=== PATIENT | female | born 1940 | race Caucasian/White ===

== ENCOUNTER 2024-12-01 20:09 | Inpatient (IN) | payer BC, SELFPAY ==
[2024-12-01] VITALS (11 sets, daily range): BP systolic 129–173; BP diastolic 68–81; BMI 21.5; BMI 22.4
[2024-12-01 17:03] LABS: % Basophils 0.6 % (0-2); % Eosinophils 0.3 % (0-6); % Immature Granulocytes 0.3 % (0-0.5); % Lymphocytes 17.5 % (20.5-51.1); % Monocytes 6.4 % (1.7-9.3); % Neutrophils 74.9 % (42.2-75.2); Absolute Basophils 0.1 10^3/uL (0-0.2); Absolute Lymphocytes 1.8 10^3/uL (1.2-3.4); Absolute Monocytes 0.7 10^3/uL (0.1-0.6); Absolute Neutrophils 7.9 10^3/uL (1.4-6.5); Hematocrit 37.7 % (37.0-47.0); Hemoglobin 12.7 g/dL (12.0-16.0); Mean Corp Hgb Conc. 33.7 g/dL (33.0-37.0); Mean Corpuscular Hgb 30.2 pg (27.0-31.0); Mean Corpuscular Volume 89.5 fL (81.0-99.0); Mean Platelet Volume 10.9 fL (7.4-10.4); Nucleated Red Blood Cells % 0 %; Platelet Count 230 10^3/uL (130-400); Red Blood Cell Count 4.21 10^6/uL (4.20-5.40); Red Cell Dist. Width 11.8 % (11.5-14.5); White Blood Cell Count 10.5 10^3/uL (4.8-10.8)
[2024-12-01 17:33] LABS: ALT (SGPT) 19 U/L (0-35); AST (SGOT) 23 U/L (14-36); Albumin 4.7 g/dl (3.5-5.0); Alkaline Phosphatase 88 U/L (38-126); Blood Urea Nitrogen 29 mg/dl (7-17); Calcium 9.6 mg/dl (8.4-10.2); Carbon Dioxide 26 mmol/L (22-30); Chloride 94 mmol/L (98-107); Glucose 117 mg/dl (70-99); Potassium 3.4 mmol/L (3.5-5.1); Sodium 133 mmol/L (135-145); Total Bilirubin 0.8 mg/dl (0.2-1.3); Total Protein 7.1 g/dl (6.3-8.2); Troponin I 0.145 ng/ml; eGFR 45.19
[2024-12-01] MEDS: HEPARIN 3400 UNITS IV (18:20)
[2024-12-01] MEDS: LOW STRENGTH ASPIRIN 324 MG PO (18:20)
[2024-12-01] MEDS: NITROGLYCERIN PREMIX 250 IV (18:20)
--- NOTE | 2024-12-01 18:22 | ED.GENMED ---
History of Present Illness
General
Chief Complaint: Chest Pain
Time Seen by Provider: 12/01/24 17:45
History of Present Illness
History of Present Illness:
84-year-old female with history of high blood pressure presenting to the emergency department for substernal chest pain. Patient reports symptoms on and off for the past 3 weeks. She went to see her primary care doctor yesterday who advised that
she go across the street to get an EKG. She never got the EKG. At work today, had additional episodes of chest pressure, notes 3 episodes across her chest. This prompted her to come to the hospital. Reports that she is presently still having some
mild pressure across her chest. Denies any known cardiac history. Does note some family history of cardiac disease. Denies difficulty breathing. Denies fever or cough. She did not take any medications prior to arrival. Denies additional acute
medical complaints
Phy Exam
Physical Exam
Physical Exam:
General: Well-appearing, no clinical signs of dehydration, nontoxic and in no acute distress
HEENT: protecting airway
Neck: appears supple
CV: Normal heart rate, regular rhythm
Resp: No accessory muscle use, no increased work of breathing, lungs clear to auscultation bilaterally
Abd: No distention
Extremities: No deformities, no swelling
Neuro: alert, no focal neurologic deficit
: deferred
Rectal: deferred
Psych: Normal affect
Skin: Intact
Scores
Heart Score for Chest Pain Patients
STEMI patient?: No
History: Moderately Suspicious
ECG: Significant ST-Depression
Age: >/= 65 years
Risk Factors: 1 or 2 Risk Factors
Troponin: >/= 3 x Normal Limit
Heart Score for Chest Pain Patients: 8
Heart Score Risk: 72.7 % MACE over next 6 weeks
Course
Orders/Labs/Results
Orders:
Orders
12/01/24 16:07
Electrocardiogram (*1) Urgent
Reason for Study: Chest Pain
EKG- Treatment ONCE
12/01/24 16:48
Complete Blood Count/With Diff Urgent
Comprehensive Metabolic Panel Urgent
Troponin I Urgent
12/01/24 18:05
Heparin 3,400 units IV NOW STA
12/01/24 18:[address] Non Medication Order As Directed
Physician Order: PTT 6 hours after initial start of Heparin infusion
Above order entered?: Yes
12/01/24 18:08
EKG- Treatment ONCE
Aspirin Chewable [Low Strength Aspirin] 324 mg PO NOW STA
12/01/24 18:15
Heparin 24370 Units/250 ml 25,000 units in 250 ml IV PER PROTOCOL
Weight to be used for heparin protocol in kilograms (kg):: 56.699
Protocol:: Cardiac Tx/Acute Coronary
PTT Goal Range to be used:: PTT 73 to 111 seconds
Order type:: Initial
INITIAL Infusion Dose (UNITS/KG/hr) & then follow protocol:: 12 units/kg/hr
Infusion Dose in UNITS/hr & then follow protocol (UNITS/hr):: 700
INFUSION RATE in mL/hr & then follow protocol (mL/hr):: 7
PTT less than or equal to 64 seconds:: Increase rate by 200 units/hr (+ 2 mL/hr)
PTT 64.1 to 72.9 seconds:: Increase rate by 100 units/hr (+ 1 mL/hr)
PTT 73 to 111 seconds:: Target Range. No change in rate.
PTT 111.1 to 130.9 seconds:: Decrease rate by 100 units/hr (- 1 mL/hr)
PTT 131 to 199.9 seconds:: HOLD for 1 hr. Then decrease rate by 200 units/hr (- 2 mL/hr)
PTT greater than or equal to 200 seconds:: HOLD for 2 hrs & Notify Provider. Then decrease by 200 units/hr (-
2 mL/hr)
Lab follow-up:: Each change, PTT q6h until 2 consecutive are therapeutic. Then PTT
daily.
Nitroglycerin 100 mg/250 ml [Nitroglycerin Premix] 100 mg in 250 ml IV PER PROTOCOL
Initial dose in mcg/min, then titrate:: 5
Titrate to keep:: Chest Pain Free
Titrate by mcg/min:: 5 mcg/min, may increase by 10 mcg/min if dose > 20 mcg/min
Frequency of titrations (minutes):: every 3-5 minutes
Maximum dose in mcg/min:: 200
Begin to taper infusion when:: Remained at goal for 2hrs
Taper by mcg/min:: 5 mcg/min
Frequency of taper (minutes) if patient maintains goal:: 30
Taper to off?: Yes
If infusion off & no longer maintaining goal:: Contact Provider
12/01/24 18:34
PTT Urgent
Comment: Obtain baseline before beginning heparin infusion if not already collected
12/01/24 19:45
Electrocardiogram (*1) Urgent
Reason for Study: Chest Pain
12/01/24 19:49
Admit/Transfer Patient As Directed
Co-Sign Provider:
Level of Care: Inpatient admission
Assign to:: IVU
Physician / Group: Horacio
Diagnosis: NSTEMI
Reason for Hospitalization: NSTEMI
Expected length of stay greater than two midnights?: Yes
ELOS- Estimated Length of Stay in days: 3
I certify the patient meets the requirements for IP care: Yes
Code Status As Directed
Resuscitation Status: Full Code
12/01/24 20:08
Troponin I Urgent
12/02/24 00:30
PTT Urgent
Abnormal Lab Results
12/01/24 12/01/24
16:48 18:34
MPV 10.9 H fL
(7.4-10.4)
Absolute Neuts (auto) 7.9 H 10^3/uL
(1.4-6.5)
Absolute Monos (auto) 0.7 H 10^3/uL
(0.1-0.6)
Lymphocytes % 17.5 L %
(20.5-51.1)
APTT > 200 H* Sec
(23.4-35.0)
Sodium 133 L mmol/L
(135-145)
Potassium 3.4 L mmol/L
(3.5-5.1)
Chloride 94 L mmol/L
(98-107)
BUN 29 H mg/dl
(7-17)
Creatinine 1.2 H mg/dL
(0.6-1.0)
Glucose 117 H mg/dl
(70-99)
Troponin I 0.145 H* ng/ml
12/01/24 16:48
12/01/24 16:48
Vital Signs
Initial and Last Documented VS:
Initial Vital Signs
Temp Pulse Resp BP Pulse Ox
98.8 F 86 16 130/74 98
12/01/24 16:39 12/01/24 16:39 12/01/24 16:39 12/01/24 16:39 12/01/24 16:39
Last Documented Vital Signs
Temp Pulse Resp BP Pulse Ox
98.5 F 80 13 157/73 100
12/01/24 17:58 12/01/24 19:00 12/01/24 19:00 12/01/24 19:00 12/01/24 19:00
MDM/Problems Addressed
MDM/Problems Addressed:
84-year-old female with history of hypertension presenting to the emergency department for chest pain. Vital signs on arrival are normal.
On exam patient is resting comfortably. Unremarkable cardiac and pulmonary exam. However, patient had EKG on arrival, abnormal with diffuse ST depressions. Patient also had laboratory analysis prior to my assessment, with troponin elevation. At
this time concern for NSTEMI. EKG repeated immediately upon patient arrival into examination room, without significant dynamic changes. Will administer aspirin and discussed with cardiology.
18:10 - In discussion with cardiology, recommending heparin and nitro drip. Plan for admission for continued cardiac consultation and likely cardiac catheterization
*EKG
Interpreted by ED Provider?: Yes
EKG Intrepretation Date: 12/01/24
Interpretation: abnormal
Comparison EKG: no comparison EKG present
Heart Rate: 69
Rate: normal
Rhythm: sinus
[place]: normal axis
Interval: normal interval
QRS Pattern: left vent hypertrophy
Ischemia: ST depression (diffuse)
*Critical Care Note
Total Time (30-74mins, 75-104mins- exclusive of procedures): 42
comment:
The high probability of a clinically significant, sudden or life threatening deterioration of the cardiac system(s) required my full and direct attention, intervention and personal management. The aggregate critical care time was 42 minutes. This
time is in addition to time spent performing reported procedures but includes the following:
[x] Data Review and interpretation
[x] Patient assessment and monitoring of vital signs
[x] Documentation
[x] Medication orders and management
ED Attending Note
-
Portions of this chart may have been created with voice recognition software.� Occasional wrong word or��sound alike� substitutions may have occurred due to the inherent limitations of voice recognition software.
Discharge Plan
Departure
Patient Disposition: Admit
Date of Disposition: 12/01/24
Time of Disposition: 19:12
Presentation/result/management discussed w/ accepting MD/DO: Hospitalist
Patient with high blood pressure during this ER visit?: No
Condition: Fair
Discharge Problem:
Non-ST elevation [place] (NSTEMI), Chest pain
Interventions
Interventions:
*Risk Screen - Suicide Last Done: 12/01/24 16:39
*General Assessment Last Done: 12/01/24 17:58
*Neglect/Abuse Screening Last Done: 12/01/24 16:39
*ED- Fall Risk Assessment Last Done: 12/01/24 17:58
*ED COVID-19 Vaccine History Last Done: 12/01/24 17:58
ED- Cardiac Assessment Last Done: 12/01/24 17:58
[2024-12-01] MEDS: HEPARIN 25000 UNITS/250 ML IV (18:38)
[2024-12-01 19:34] LABS: APTT > 200 Sec (23.4-35.0)
--- NOTE | 2024-12-01 19:52 | HPS.HSE ---
Family Physician
-
Family Physician: Ean Gibbons
Chief Complaint
-
Chest pain
History of Present Illness
Patient is an 84y F with PMH significant for hypertension who presents to ED complaining of chest pain. Patient states that she first noted chest discomfort in October. Pain was intermittent and brief initially. Over the past week or so, she
notes that the pain has been more frequent and more severe. Pain not associated with exercise / strenuous activity - but tends to occur more often when at work / under stress. Patient describes pain across the chest with radiation into both arms.
No back pain. No dyspnea or diaphoresis. She reports frequent belching and states that her symptoms had improved previously with TUMS or Pepcid.
Patient also states that she started taking daily ASA - but only in the past week or so since her pain began.
Patient was seen by her PCP on Thursday of this week and reported her complaints. She was advised to go to [facility] to have an EKG done, but she declined to do so at the time.
Today she had three episodes of chest pain while at work and presented to the ED for evaluation.
At the time of my exam, patient is pain-free.
Medical History
Past Medical History
Past Medical History: Reports Other
Additional Past Medical History:
Hypertension
Dyslipidemia
Past Surgical History: Reports Other
Additional Past Surgical History:
D&C
Social History
Tobacco: Former Smoker (Quit smoking about 20 years ago. Approx 30 pack years total use.)
Alcohol: Occasional
Drug: None
Family History
Family History: Hypertension
Allergies / Home Medications
Allergies reflects when Allergies were last updated in [employer].
Home Medications with original date entered in [employer]
Allergy/Medication List:
Allergies
Allergy/AdvReac Type Severity Reaction Status Date / Time
pepper (genus Capsicum) Allergy Unknown Verified 12/01/24 16:43
tetanus and diphtheria Allergy Unknown Verified 12/01/24 16:43
toxoids
Home Medications
aspirin 325 mg tablet 650 mg PO DAILYPRN PRN preventative measure 12/01/24
enalapril maleate 20 mg tablet 20 mg PO DAILY 12/01/24
hydrochlorothiazide 25 mg tablet 25 mg PO DAILY 12/01/24
omega 3-tty-xal-fish oil 1,000 mg (120 mg-180 mg) capsule (Fish Oil) 1 cap PO HS 12/01/24
simvastatin 10 mg tablet 10 mg PO HS 12/01/24
Review of Systems
-
History Source: Patient
A 12 point ROS was completed and negative except as noted: Yes
Constitutional: Denies Fever, Fatigue or Chills
EENT: Denies Sore Throat
Respiratory: Denies Cough or Trouble Breathing
Cardiac: Reports Chest Pain; Denies Diaphoresis, Palpitations or Syncope
Abdomen/GI: Reports Other (Belching.); Denies Abdominal Pain, Nausea, Vomiting or Diarrhea
: Denies Dysuria or Frequency
Musculoskeletal: Denies Joint Pain or Edema
Neurological: Denies Dizzy or Headache
Psych: Denies Depression or Anxiety
Physical Exam
Vital Signs
Vital Signs
Temp Pulse Resp BP Pulse Ox
98.5 F 80 13 157/73 100
12/01/24 17:58 12/01/24 19:00 12/01/24 19:00 12/01/24 19:00 12/01/24 19:00
Physical Exam
General: Other (84y F in no acute distress.)
HEENT: Moist mucous membranes and PERRLA
Respiratory: Clear; No Wheezes, Rales or Rhonchi
Cardiac: S1/S2 and Regular Rhythm; No Murmur
GI: Soft, Non Tender, Non Distended and Normal Bowel Sounds
Musculoskeletal: No Clubbing, No Cyanosis and No Edema
Neuro: AO x 3
Laboratory Results
-
12/01/24 16:48
12/01/24 16:48
Laboratory Results
APTT > 200 Sec (23.4-35.0) H* 12/01/24 18:34
Total Bilirubin 0.8 mg/dl (0.2-1.3) 12/01/24 16:48
AST 23 U/L (14-36) 12/01/24 16:48
ALT 19 U/L (0-35) 12/01/24 16:48
Alkaline Phosphatase 88 U/L (38-126) 12/01/24 16:48
Troponin I 0.145 ng/ml H* 12/01/24 16:48
Impression/Plan
-
A/P: Patient is an 84y F with PMH significant for hypertension and dyslipidemia who presents to ED complaining of chest pain.
NSTEMI
- Admit for further evaluation and treatment.
- Symptoms have been present for a few weeks - worse over the past week.
- EKG with ST elevation in AVR and diffuse ST depressions.
- Initial troponin elevated at 0.145 - trend to peak.
- Patient is pain-free at present.
- Continue IV heparin and IV NTG - adjust as needed.
- ASA daily. Change statin to atorvastatin.
- Cardiology evaluation for additional recommendations and likely ischemic evaluation.
- Follow for any new / worsening symptoms.
Hypertension
- BP not markedly elevated here in the ED.
- Hold enalapril for now while on IV NTG.
- Adjust med regimen prior to discharge for BP control / reduction in CV risk.
Renal Insufficiency
- SCr = 1.2 with no prior values for comparison.
- Holding ALEE as noted above.
- Follow for changes in the next 48 hours to determine MARLENY v CKD.
DVT Prophylaxis: On IV Heparin
Code Status: Full
[2024-12-01 21:15] LABS: Troponin I 0.211 ng/ml
[2024-12-01] MEDS: LR 1000 IV (23:07)
[2024-12-01 23:55] LABS: APTT 106.5 Sec (23.4-35.0)
[2024-12-02] VITALS (14 sets, daily range): BP systolic 116–164; BP diastolic 62–125; BMI 22.2
[2024-12-02 00:04] LABS: Troponin I 0.343 ng/ml
--- NOTE | 2024-12-02 03:25 | PTCARENOTE ---
Received pt from ER into 2255 last night around 2200. Pt AAOx3 SR on the monitor VSS Heparin gtt infusing @ 700 units/HR Nitro gtt @ 5 mcg/min denies cp. Pt is NPO for possible cath. Call rick within reach.
[2024-12-02 05:56] LABS: Hematocrit 34.5 % (37.0-47.0); Mean Corp Hgb Conc. 34.8 g/dL (33.0-37.0); Mean Corpuscular Hgb 30.3 pg (27.0-31.0); Mean Corpuscular Volume 87.1 fL (81.0-99.0); Platelet Count 220 10^3/uL (130-400); Red Blood Cell Count 3.96 10^6/uL (4.20-5.40); Red Cell Dist. Width 11.6 % (11.5-14.5); White Blood Cell Count 9.4 10^3/uL (4.8-10.8)
[2024-12-02 06:04] LABS: APTT 92.8 Sec (23.4-35.0)
[2024-12-02 06:23] LABS: Blood Urea Nitrogen 32 mg/dl (7-17); Calcium 9.4 mg/dl (8.4-10.2); Carbon Dioxide 26 mmol/L (22-30); Chloride 101 mmol/L (98-107); Estimated Creatinine Clearance 33 ml/min; Glucose 95 mg/dl (70-99); HDL Cholesterol 58 mg/dl; LDL Cholesterol, Calculated 113 mg/dl; Potassium 3.2 mmol/L (3.5-5.1); Sodium 136 mmol/L (135-145); Total Cholesterol 188 mg/dl (50-199); Triglyceride 88 mg/dl (10-149); Very Low Density Lipoprotein 17 mg/dl (0-30); eGFR 50.17
[2024-12-02 06:44] LABS: Troponin I 0.536 ng/ml
--- NOTE | 2024-12-02 06:55 | W.PN.HOSP.TC ---
Today's Communication/Plan
-
ischemic cardiac evaluation
IV heparin, IV NTG
Replace K
Echo
Assessment / Plan
Assessment / Plan
Physical Exam
General: No Apparent Distress and Comfortable
HEENT: Normocephalic, Anicteric and Moist Mucous Membranes
Respiratory: Clear; Negative Wheezes,
Cardiac: S1/S2
GI: Soft, Non Tender and Non Distended
Musculoskeletal: No Clubbing, No Cyanosis and No Edema
Skin: Warm
Neuro: AO x 3, she follows commands.
Psych: Calm
Patient is an 84y F with PMH significant for hypertension and dyslipidemia who presents to ED complaining of chest pain.
# NSTEMI
-troponin at 0.536 this morning from 0.145
no chest pain over night
Positive EKG changes
Continue IV heparin and IV NTG - adjust as needed.
- ASA daily. Change statin to atorvastatin. LDL 113
- order echo
- Cardiology evaluation for additional recommendations and likely ischemic evaluation.
- Follow for any new / worsening symptoms.
# Essential Hypertension
- Hold enalapril for now while on IV NTG.
- Adjust med regimen prior to discharge for BP control / reduction in CV risk.
#MARLENY
- SCr = 1.2 , down to 1.1
- Holding ALEE as noted above.
# Hyponatremia, mild
# Hypokalemia
replace
DVT Prophylaxis: On IV Heparin
Code Status: Full
Anticipated Discharge: 24 - 48 hours
Subjective/Interval History
-
Date of Service: December 02, 2024
Denies chest pain or sob
Objective Data
-
Labs:
Laboratory Results
12/01/24 12/01/24 12/01/24
18:34 21:38 23:02
WBC
Hgb
Hct
Plt Count
APTT > 200 H* Cancelled 106.5 H
Sodium
Potassium
Chloride
Carbon Dioxide
BUN
Creatinine
Glucose
Calcium
12/02/24 12/02/24
00:30 05:37
WBC 9.4
Hgb 12.0
Hct 34.5 L
Plt Count 220
APTT Cancelled 92.8 H
Sodium 136
Potassium 3.2 L
Chloride 101
Carbon Dioxide 26
BUN 32 H
Creatinine 1.1 H
Glucose 95
Calcium 9.4
Vital Signs:
Vital Signs
Temp Pulse Resp BP Pulse Ox
99.2 F 77 16 136/66 96
12/02/24 05:27 12/02/24 05:27 12/02/24 05:27 12/02/24 05:24 12/02/24 05:27
I&O
11/30/24 12/01/24 12/02/24
06:59 06:59 06:59
Intake Total 776 / 776
Balance 776 / 776
--- NOTE | 2024-12-02 08:00 | PTCARENOTE ---
Assumed care of pt from prev nsg shift; Pt AAOx3 w/no c/o CP or SOB. Pt's VSS w/HR in the 70's & BP 137/67 this AM. Pt is SR on telemetry monitoring. Pt w/Hep IV, Nitro IV, & IVF infusing through patent IV lines as ordered. Pt OOB w/contact guard
assist due to IV pole; gait steady. CAD/ACS book given to pt. Pt w/no addtl needs at this time. Call rick within reach & plan of care ongoing.
--- NOTE | 2024-12-02 08:07 | CON.CAR ---
Consultation
Consultation Request
Date/Time Consultation Requested: 12/02/24
Date/Time Consultation Performed: 12/02/24
Requesting Provider: Dr Luke
Performing Provider: Dr Rodriguez
Reason for Consultation: chest pain
Medical History
-
Chief Complaint: Chest pain
History of Present Illness:
84-year-old female with a past medical history of hypertension and hyperlipidemia presents for evaluation of chest pain. Patient has had intermittent episodes of chest pain across the anterior aspect of the upper chest since the end of October.
She had first thought this was gas as it seems to be associated with food. However over the last several days, she has noticed that if she has been rushing and yesterday, she was stopped and her checked by the severity of the pain. This time the
pain went across her chest and radiated into her armpit and down her sides. She is still independent living alone working full-time, but is not active outside of work.
Upon arrival, she was started on a nitroglycerin drip which immediately relieved the pain and this pain has not recurred.
Past Medical History
Past Medical History: HTN and Hypercholesterolemia
Past Surgical History: None
Social History
Tobacco: Former Smoker (Quit 20 years ago)
Alcohol: Occasional (2-3 times a week, 2-3 glasses of wine)
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
Family History
Family History: Reviewed & Not Pertinent
Allergies / Home Medications
Allergy/AdvReac Type Severity Reaction Status Date / Time
pepper (genus Capsicum) Allergy Unknown Verified 12/01/24 16:43
tetanus and diphtheria Allergy Unknown Verified 12/01/24 16:43
toxoids
�Medication �Instructions �Recorded �Confirmed �Type
aspirin 325 mg tablet 650 mg PO DAILYPRN PRN 12/01/24 12/01/24 History
preventative measure
enalapril maleate 20 mg tablet 20 mg PO DAILY 12/01/24 12/01/24 History
hydrochlorothiazide 25 mg tablet 25 mg PO DAILY 12/01/24 12/01/24 History
omega 6-jlb-qir-fish oil 1,000 mg 1 cap PO HS 12/01/24 12/01/24 History
(120 mg-180 mg) capsule (Fish Oil)
simvastatin 10 mg tablet 10 mg PO HS 12/01/24 12/01/24 History
Review of Systems
-
All other systems: Negative unless noted
Physical Exam
Vital Signs
Temp Pulse Resp BP Pulse Ox
98.4 F 71 16 137/67 98
12/02/24 07:50 12/02/24 07:45 12/02/24 07:50 12/02/24 07:40 12/02/24 07:50
Lab Results
12/02/24 05:37
12/02/24 05:37
Troponin I 0.536 ng/ml H* D 12/02/24 05:37
Physical Exam
General: Well Developed, Well Nourished, No Apparent Distress and Comfortable
HEENT: Normocephalic, Anicteric and Moist Mucous Membranes
Respiratory: Clear; Negative Wheezes, Crackles, Rhonchi or Non Labored Respirations
Cardiac: S1/S2 and Regular Rhythm; Negative Murmur, Rub or Peripheral Edema
GI: Soft, Non Tender and Non Distended
Musculoskeletal: No Clubbing, No Cyanosis and No Edema
Skin: Warm
Neuro: AO x 3
Psych: Calm
Impression / Plan
-
84-year-old female with history of hypertension and hyperlipidemia presents with intermittent chest pains that become progressive and more severe prompting her to seek care in the emergency department.
NSTEMI:
-Continue heparin gtt and nitro gtt with intensive monitoring, aspirin, high-dose statin
-hold off on P2y12 inhibitor given HARVINDER in AVR on initial ECG
-Will add beta-hemant
-Eventually resume ALEE inhibitor.
-Check echo
-Continue to trend troponin to peak
-Keep n.p.o., plan for catheterization today
HTN: will transition medications to OMT
HLD: LDL too high, transitioned to high dose statin, will continue
d/w Dr Desir and Dr Prado
Overall, situation is still high risk, plan to proceed to cath for further evaluation and treatment
Data Reviewed
-
EKG: Tracing Personally Visualized and interpreted (EKG tracing 12/01/2024 shows normal sinus rhythm with diffuse ST depression, HARVINDER in AVR left ventricular hypertrophy. Repeat EKG 12/02/2024 normal sinus rhythm, improved ST depressions compared to the
prior)
Labs: Labs Reviewed by me (Troponin 0.145 trended up to 0.536 and still rising LDL 113)
[2024-12-02] MEDS: LOW STRENGTH ASPIRIN 81 MG PO (09:39)
[2024-12-02] MEDS: LOPRESSOR 12.5 MG PO ×2 (09:39→21:12)
[2024-12-02] MEDS: PROTONIX 40 MG PO (09:39)
[2024-12-02] MEDS: KCL 270 MEQ IV (09:46)
[2024-12-02 10:09] LABS: Glycohemoglobin (HgbA1c) 5.7 % (4.0-5.6)
[2024-12-02 10:24] LABS: Troponin I 0.431 ng/ml
--- NOTE | 2024-12-02 10:30 | PTCARENOTE ---
Pt not tolerating IV K+ infusion. Running through patent IV line w/compatible IVF. Pt reporting 10/ pain at the IV site & 'going up the arm'. Pt is refusing the IV K+ now & stated she'll 'eat 10 bananas instead'. Advised Dr Prado & Yard Assistant.
PO K+ to be ordered post cardiac cath when pt no longer NPO per Dr Prado. IV K+ infusion stopped.
--- NOTE | 2024-12-02 10:40 | PTCARENOTE ---
Pt w/no c/o CP for >6 hrs. Pt's VSS. IV Nitro drip titrated to off as ordered for no CP.
--- NOTE | 2024-12-02 11:06 | CM ---
Addendum entered by JUS Bryan 12/02/24 15:02:
Met w/ patient at bedside. Patient has had CATH and is now anticipating CT Surgery, date unknown.
Emotional support provided.
Agreed to return at a later time to complete pre-op teaching.
Original Note:
CM following for DC planning needs.
Met w/ patient at bedside to complete initial assessment.
Pt. resides alone in a private, split level home. She is functionally indep. w/ ADLs, mobility without the use of any assisted device.
Pt. works full-time thru the [employer].
Pt. has RX plan and uses [facility] in [place] for prescription needs; pt. does NOT have Medicare ins.
Anticipated DC plan is for home, no needs.
Will remain avail. and cont. to follow.
--- NOTE | 2024-12-02 11:15 | PTCARENOTE ---
Report given to Rakel in the agriculture laboratory technician. Pt's IVF & IV Heparin drips stopped. 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
--- NOTE | 2024-12-02 12:07 | CONSULT.CT ---
Consultation
-
Date/Time Consultation Requested: 12/02/24 1200
Date/Time Consultation Performed: 12/02/24 1205
Requesting Provider: Marla DARDEN
Performing Provider: Seema DARDEN for Esvin HARE
Reason for Consultation: CABG eval
Patient History
Physicians
Family Physician: Ean Gibbons
Outpatient Consulting Project Director: Dr Rodriguez
Inpatient Consulting Project Director: Dr Rodriguez
History of Present Illness
84-year-old female with past medical history significant for hypertension and hyperlipidemia presents to [facility] on 12/01/2024 with complaints of worsening chest pain. She states that she has been having several episodes of intermittent
chest pain however yesterday it has grown in severity it went across her chest and radiated to her armpit and down her arm. Upon arrival to the emergency room patient was started on a nitroglycerin drip which helped resolve her pain. She was also
found to have an elevated troponin which peaked at 0.536 and was started on a heparin drip. Echocardiogram today showed an LV EF of 55-60% with mid anteroseptal/inferior septal hypokinesis and no significant valvular disease. She was also taken
for a left heart cath which was just significant for ostial left main into LAD and left circumflex disease. CT surgery was consulted for surgical evaluation.
Past Medical History
Past Medical History: HTN and Hypercholesterolemia
Past Surgical History
Past Surgical History: None
Family History
Mother: N/A
Father: N/A
Family Medical History: CAD
Social History
Alcohol: Occasional (2-3 glasses of wine/week)
Drug: None
Tobacco: Former Smoker
Personal: Single
Living: Alone
Employment: Employed
Allergies
Allergy/AdvReac Type Severity Reaction Status Date / Time
pepper (genus Capsicum) Allergy Unknown Verified 12/01/24 16:43
tetanus and diphtheria Allergy Unknown Verified 12/01/24 16:43
toxoids
Home Medications
�Medication �Instructions �Recorded �Confirmed �Type
aspirin 325 mg tablet 650 mg PO DAILYPRN PRN 12/01/24 12/01/24 History
preventative measure
enalapril maleate 20 mg tablet 20 mg PO DAILY 12/01/24 12/01/24 History
hydrochlorothiazide 25 mg tablet 25 mg PO DAILY 12/01/24 12/01/24 History
omega 8-pcb-wxp-fish oil 1,000 mg 1 cap PO HS 12/01/24 12/01/24 History
(120 mg-180 mg) capsule (Fish Oil)
simvastatin 10 mg tablet 10 mg PO HS 12/01/24 12/01/24 History
Review of Systems
-
History Source: Patient
General: Reports No Symptoms
HEENT: Reports No Symptoms
Respiratory: Reports HILLS
Cardiac: Reports Chest Pain
Abdomen/GI: Reports No Symptoms
: Reports No Symptoms
Musculoskeletal: Reports No Symptoms
Skin: Reports No Symptoms
Neurological: Reports No Symptoms
Vascular: Reports No Symptoms
Physical Exam
Vital Signs
Temp 98 F 12/02/24 11:03
Temp route: Oral 12/02/24 11:03
Pulse 75 12/02/24 11:15
Rhythm: Normal sinus rhythm 12/02/24 08:05
Resp Rate 20 12/02/24 11:03
Blood pressure 162/80 12/02/24 11:02
Blood pressure extremity used: Right upper arm 12/02/24 11:03
Position: Lying 12/02/24 11:03
MAP (cuff-Betzy Monitor) 98 12/02/24 11:02
MAP 87 12/01/24 17:58
SaO2 99 12/02/24 11:03
Oxygen Mode of Delivery Room air 12/02/24 11:03
Can the patient verbally communicate their pain? Yes 12/02/24 08:05
Actual Weight 56.8 kg 12/02/24 05:26
Body Mass Index (BMI) 22.2 12/02/24 05:26
Labs
12/02/24 05:37
12/02/24 05:37
APTT 92.8 Sec (23.4-35.0) H 12/02/24 05:37
Hemoglobin A1c Cancelled 12/01/24 21:51
Troponin I 0.431 ng/ml H* 12/02/24 09:48
Exam
General: Well Developed, Well Nourished and No Apparent Distress
HEENT: Moist Mucous Membranes
Respiratory: Clear
Cardiac: S1/S2 and Regular Rhythm
GI: Soft and Non Tender
Rectal: Deferred by Provider
Skin: Warm and Dry
Neuro: AO x 3
Extremities: Pulses (+1)
Lymph: No Lymphadenopathy
Psych: Other (anxious)
Assessment / Plan
-
84-year-old female with past medical history of hypertension and hyperlipidemia presented to [facility] on 12/01 with complaints of chest pain and ruled in for an NSTEMI. Left heart cath revealed left main disease and CT surgery was
consulted for surgical evaluation.
#CAD
-Patient's case will be discussed with attending physician. Further details regarding surgical timing intervention will be determined after attending physicians full evaluation
-Routine preoperative cardiothoracic surgery orders will be initiated.
-STS risk stratification score will be calculated after preoperative testing is complete
-Continue nitroglycerin and heparin gtt per cardiology
[2024-12-02] MEDS: LR IV (12:44)
--- NOTE | 2024-12-02 14:10 | ITS.CL.PN ---
Digital Manager - Procedure Note
Procedure
Procedure Note:
CARDIAC CATHETERIZATION REPORT
Date of Procedure: 12/02/2024
Referring: Dr. Mae Rodriguez MD
Indication: NSTEMI
PROCEDURE(S)
1. left heart catheterization
2. coronary angiography
ACCESS: 6F right radial artery (closure: radial band)
CATHETERS
1. 6F JR4
2. 6F JL3.5
MODERATE SEDATION: 25 minutes of moderate sedation was utilized. An independent medical resident was present to assist with and help manage the patient's level of consciousness and physiologic status.
ULTRASOUND GUIDED VASCULAR ACCESS (right radial artery): Ultrasound was utilized for vascular access. The vessel was visualized under ultrasound and noted to be patent. An image of the vessel was stored permanently in the patient's medical record.
Under direct ultrasound guidance, vascular access was obtained using a modified Seldinger technique and a 6 [place] sheath was placed.
HEMODYNAMIC DATA
LV 144/12 (EDP 18) mmHg
AO 140/67 (mean 96) mmHg
CORONARY ANGIOGRAPHY
Dominance: Right
LM: Short vessel with a calcific 95-99% stenosis ostially.
LAD: Large vessel giving rise to a small D1, moderate caliber D2, and small D3. There is a calcific 80% stenosis in the mid-vessel and otherwise mild non-obstructive disease.
LCx: Moderate caliber vessel giving rise to a small OM1, moderate caliber OM2, and small OM3. There is a 50% focal stenosis in the proximal vessel and otherwise non-obstructive disease.
RCA: Large vessel giving rise to a large caliber RPDA, small RPL1, and large RPL2. There is a tortuous segment in the mid-RCA that contains a focal 90% stenosis. There is also moderate Pereira 1,1,1 bifurcation disease at the distal RCA/RPDA/RPAV
bifurcation. There is otherwise mild non-obstructive disease.
RADIATION: dose 352 mGy; DAP 26.1 Gy*cm2; fluoroscopy time 5.1 min
CONCLUSIONS
1. Severe calcific multivessel coronary artery disease as described including high-grade ostial left main stenosis.
2. Mildly elevated LV filling pressure and no aortic stenosis
RECOMMENDATIONS
1. expectant management after cardiac catheterization via right radial approach
2. Continue aspirin and heparin, avoid P2 Y12 inhibitors
3. CT surgical consult for CABG with RADER to LAD and additional grafts to the RPDA, RPL2, and OM2.
Copy to: Dr. Ean Gibbons MD (PCP)
Signed: Dylan Hansen MD, PhD
[2024-12-02] MEDS: FLUSH (NSS) 1 FLUSH IV (17:31)
[2024-12-02] MEDS: LIPITOR 40 MG PO (17:32)
--- NOTE | 2024-12-02 19:57 | PTCARENOTE ---
Assumed care of the pt @ 1900. Pt is AAOx3 with family @ bedside. SR on the monitor VSS denies pain. Heparin is infusing @ 700 units/ HR. Call rick within reach.
[2024-12-02 21:48] LABS: APTT 63.4 Sec (23.4-35.0)
[2024-12-03] VITALS (29 sets, daily range): BP systolic 76–174; BP diastolic 37–94; BMI 22.3
[2024-12-03] MEDS: NITROSTAT (SUBLINGUAL) 0.4 MG SL (03:45)
--- NOTE | 2024-12-03 03:54 | PTCARENOTE ---
Pt c/o midsternal chest pain 04/06 the radiates to both arms. T Luis A notified and up at bedside to eval. EKG done. morning labs sent including troponin. Nitro gtt restarted and titrating for chest pain. Nitro sl given stat as well. Pt was placed
on 2 LPM NC.
[2024-12-03] MEDS: LOPRESSOR 12.5 MG PO ×2 (04:05→19:32)
--- NOTE | 2024-12-03 04:06 | W.PN.UPDATE ---
Update Note
Progress Note Update
-came in urgently @ 3:35am as pt c/o 7/10 CP, looked uncomfortable, restless in bed. ECG reviewed. BP was initially 116/75, hr 65. Pt is on iv Heparin; however, iv Nitro has been off. 2L O2 started, gave 1 sl Nitro, restarted Nitro drip and CP
resolved. Repeat SBPs 150s-170s- uptitrated iv Nitro and gave po BB early. Pt is now comfortable and pain free
-am labs sent
-continue iv Nitro (please do not wean off. Pt has mv-CAD with 95-99% LM stenosis). Continue iv Heparin
-preop eval for CABG is ongoing
[2024-12-03 04:13] LABS: Hematocrit 36.6 % (37.0-47.0); Hemoglobin 12.5 g/dL (12.0-16.0); Mean Corp Hgb Conc. 34.2 g/dL (33.0-37.0); Mean Corpuscular Hgb 30.5 pg (27.0-31.0); Mean Corpuscular Volume 89.3 fL (81.0-99.0); Mean Platelet Volume 11.3 fL (7.4-10.4); Platelet Count 209 10^3/uL (130-400); Red Cell Dist. Width 11.8 % (11.5-14.5); White Blood Cell Count 11.2 10^3/uL (4.8-10.8)
[2024-12-03 04:25] LABS: INR 1.03; PT 13.8 Sec (11.4-14.6)
[2024-12-03 06:11] LABS: ALT (SGPT) 24 U/L (0-35); AST (SGOT) 34 U/L (14-36); Albumin 4.2 g/dl (3.5-5.0); Alkaline Phosphatase 100 U/L (38-126); Blood Urea Nitrogen 27 mg/dl (7-17); Calcium 9.4 mg/dl (8.4-10.2); Carbon Dioxide 22 mmol/L (22-30); Chloride 103 mmol/L (98-107); Direct Bilirubin 0.2 mg/dl (0.0-0.4); Estimated Creatinine Clearance 33 ml/min; Glucose 110 mg/dl (70-99); Potassium 3.8 mmol/L (3.5-5.1); Sodium 137 mmol/L (135-145); Total Bilirubin 0.7 mg/dl (0.2-1.3); Total Protein 6.6 g/dl (6.3-8.2); eGFR 50.17
--- NOTE | 2024-12-03 06:42 | W.PN.HOSP.TC ---
Today's Communication/Plan
-
c/w IV Heparin and IV nitro gtt
Assessment / Plan
Assessment / Plan
Physical Exam
General: No Apparent Distress and Comfortable
HEENT: Normocephalic, Anicteric and Moist Mucous Membranes
Respiratory: Clear; Negative Wheezes,
Cardiac: S1/S2
GI: Soft, Non Tender and Non Distended
Musculoskeletal: No Clubbing, No Cyanosis and No Edema
Skin: Warm
Neuro: AO x 3, she follows commands.
Psych: Calm
Patient is an 84y F with PMH significant for hypertension and dyslipidemia who presents to ED complaining of chest pain.
# NSTEMI due to multivessel disease
Plan for CT surgery evaluation for bypass surgery
She had chest pain last night, was placed back on nitro gtt
-troponin at 0.536 this morning from 0.145
no chest pain over night
Positive EKG changes
Continue IV heparin and IV NTG - adjust as needed. Started on BB
- ASA daily. Changed statin to atorvastatin. LDL 113
- Echo showed left ventricular ejection fraction is 55-60%. Mid anteroseptal/inferoseptal hypokinesis. Normal right ventricular size and function. Aortic sclerosis without stenosis.
Appreciate CT surgery and cardiology help.
# Nitro induced hypotension, lower rate of nitro drip
# Essential Hypertension
- Held enalapril for now while on IV NTG.
c/w BB, Nitro gtt
#MARLENY
- SCr = 1.2 , down to 1.1
- Holding ALEE as noted above.
# Hyponatremia, mild
# Hypokalemia
replaced
DVT Prophylaxis: On IV Heparin
Code Status: Full
Total time spent to see the patient, examine the patient, review data and lab results, discuss treatment plan with patient and nursing staff around 55 minutes
Anticipated Discharge: > 48 hours
Subjective/Interval History
-
Date of Service: December 03, 2024
Objective Data
-
Labs:
Laboratory Results
12/02/24 12/03/24 12/03/24
21:23 03:44 12:00
WBC 11.2 H
Hgb 12.5
Hct 36.6 L
Plt Count 209
PT 13.8
INR 1.03
APTT 63.4 H 189.0 H* Pending
Sodium 137
Potassium 3.8
Chloride 103
Carbon Dioxide 22
BUN 27 H
Creatinine 1.1 H
Glucose 110 H
Calcium 9.4
Total Bilirubin 0.7
AST 34
ALT 24
Alkaline Phosphatase 100
Vital Signs:
Vital Signs
Temp Pulse Resp BP Pulse Ox
98.1 F 60 16 142/81 100
12/03/24 03:40 12/03/24 04:15 12/03/24 03:40 12/03/24 04:10 12/03/24 04:10
I&O
12/01/24 12/02/24 12/03/24
06:59 06:59 06:59
Intake Total 776 / 776 1320 / 1320
Balance 776 / 776 1320 / 1320
[2024-12-03] MEDS: HEPARIN 25000 UNITS/250 ML IV (08:44)
[2024-12-03] MEDS: PROTONIX 40 MG PO (09:01)
[2024-12-03] MEDS: LOW STRENGTH ASPIRIN 81 MG PO (09:01)
--- NOTE | 2024-12-03 09:44 | W.PN.UPDATE ---
Update Note
Progress Note Update
STS RISK CALCULATION FOR PENDING CABG
Procedure Type:�Isolated CABG
Perioperative Outcome Estimate %
Operative Mortality 4.44%
Morbidity & Mortality 10.1%
Stroke 1.61%
Renal Failure 1.64%
Reoperation 2.92%
Prolonged Ventilation 5.56%
Deep Sternal Wound Infection 0.129%
Long Hospital Stay (>14 days) 5.88%
Short Hospital Stay (<6 days)* 34.5%
*higher values reflect a better outcome
--- NOTE | 2024-12-03 10:27 | W.PN.CD ---
Today's Communication / Plan
-
-Found to have severe left main stenosis yesterday--this is a threat to life; CABG evaluation underway.
-Patient had angina overnight; nitroglycerin drip reinitiated.
-Continue heparin gtt and nitro gtt with intensive monitoring.
-Continue aspirin and atorvastatin.
-Echocardiogram yesterday revealed an LVEF of 55-60% with mid anteroseptal/inferoseptal hypokinesis and aortic sclerosis without stenosis.
Impression / Plan
-
84-year-old female with history of hypertension and hyperlipidemia presents with intermittent chest pains that become progressive and more severe prompting her to seek care in the emergency department.
CAD/NSTEMI:
-Found to have severe left main stenosis yesterday--this is a threat to life; CABG evaluation underway.
-Patient had angina overnight; nitroglycerin drip reinitiated.
-Continue heparin gtt and nitro gtt with intensive monitoring.
-Continue aspirin and atorvastatin.
-Continue current dose of metoprolol and atorvastatin.
-Echocardiogram yesterday revealed an LVEF of 55-60% with mid anteroseptal/inferoseptal hypokinesis and aortic sclerosis without stenosis.
-Troponin downtrending down, peaked at 0.536.
HTN: Blood pressure stable/fairly controlled.
HLD: Continue atorvastatin.
Physical Exam
Vital Signs/Labs
Vital Signs
Temp Pulse Resp BP Pulse Ox
98.3 F 60 16 142/81 96
12/03/24 08:31 12/03/24 04:15 12/03/24 08:31 12/03/24 04:10 12/03/24 08:31
12/02/24 12/03/24 12/04/24
06:59 06:59 07:59
Actual Weight 56.8 kg 57.1 kg
12/03/24 03:44
12/03/24 03:44
PT 13.8 Sec (11.4-14.6) 03/08/25 03:44
INR 1.03 12/03/24 03:44
APTT Cancelled 12/03/24 12:00
Triglycerides 88 mg/dl (10-149) 12/02/24 05:37
LDL Cholesterol, Calc 113 mg/dl 12/02/24 05:37
VLDL Cholesterol, Calc 17 mg/dl (0-30) 12/02/24 05:37
HDL Cholesterol 58 mg/dl 12/02/24 05:37
LAB Results
12/01/24 12/01/24 12/01/24
16:48 20:08 23:02
Troponin I 0.145 H* 0.211 H* D 0.343 H* D
12/02/24 12/02/24 12/03/24
05:37 09:48 03:44
Troponin I 0.536 H* D 0.431 H* 0.250 H*
Physical Exam
Constitutional: No acute distress and Comfortable
EENT: Anicteric
Cardiovascular: Rhythm & rate is regular, Pedal edema is absent, Systolic murmur absent and S1S2 is normal
Respiratory: Respiratory effort normal and Lungs clear to auscul.
GI: Soft
Neuro/Psych: AO x 3
Other: Skin (Warm, dry, intact)
Data Reviewed
-
Date of Service: December 03, 2024
Echo: Tracing Personally Visualized and interpreted (LVEF 55-60% mid anteroseptal/inferoseptal hypokinesis; aortic sclerosis without stenosis.)
Medical Tests (PFT, Pathology etc): Discussed with Patient
Labs: Labs Reviewed by me
[2024-12-03] MEDS: NORVASC 2.5 MG PO (15:37)
--- NOTE | 2024-12-03 16:29 | PTCARENOTE ---
Assessment stable as documented. Pt without C/P or other complaints. Pt hypotensive stasrt of shift - but stabilized once pt woke up. Pt BP elevated in afternoon - Norvasc dose given.
--- NOTE | 2024-12-03 17:00 | PTCARENOTE ---
pt with brief episode of CP - 2-3/10 quickly relieved with increase nitro gtt and 'belch'. Pt remains hypertensive.
[2024-12-03] MEDS: LIPITOR 40 MG PO (17:45)
[2024-12-03 18:44] LABS: APTT 89.9 Sec (23.4-35.0)
--- NOTE | 2024-12-03 23:33 | PTCARENOTE ---
Received patient at change of shift. SR on the monitor, HR in the 60s. Heparin and nitro running as per protocol, see documentation. No complaints from pt at this time, call rick within reach.
[2024-12-04] VITALS (7 sets, daily range): BP systolic 108–156; BP diastolic 53–76; BMI 22.2
[2024-12-04 03:35] LABS: APTT 67.6 Sec (23.4-35.0)
--- NOTE | 2024-12-04 06:43 | W.PN.HOSP.TC ---
Today's Communication/Plan
-
c/w IV Heparin & IV Nitro
small dose BB & Amlodipine
Assessment / Plan
Assessment / Plan
Physical Exam
General: No Apparent Distress and Comfortable
HEENT: Normocephalic, Anicteric and Moist Mucous Membranes
Respiratory: Clear; Negative Wheezes,
Cardiac: S1/S2
GI: Soft, Non Tender and Non Distended
Musculoskeletal: No Clubbing, No Cyanosis and No Edema
Skin: Warm
Neuro: AO x 3, she follows commands.
Psych: Calm
Patient is an 84y F with PMH significant for hypertension and dyslipidemia who presents to ED complaining of chest pain.
# NSTEMI due to multivessel disease
Plan for CT surgery evaluation for bypass surgery
She had chest pain last night, was placed back on nitro gtt
-troponin at 0.536 this morning from 0.145
no chest pain over night
Positive EKG changes
Continue IV heparin and IV NTG - adjust as needed. Started on BB
- ASA daily. Changed statin to atorvastatin. LDL 113
- Echo showed left ventricular ejection fraction is 55-60%. Mid anteroseptal/inferoseptal hypokinesis. Normal right ventricular size and function. Aortic sclerosis without stenosis.
CT chest no focal airspace disease
Carotid US no significant stenosis
Appreciate CT surgery and cardiology help.
# Essential Hypertension
- Held enalapril for now while on IV NTG.
c/w BB, Nitro gtt
#MARLENY
- SCr = 1.2 , down to 1.1
- Holding ALEE as noted above.
# Primary HTN
c/w IV Nitro for now, keeping it low level only for angina pain
added small dose amlodipine, c/w BB
# Hyponatremia, mild
# Hypokalemia
replaced
DVT Prophylaxis: On IV Heparin
Code Status: Full
Total time spent to see the patient, examine the patient, review data and lab results, discuss treatment plan with patient and nursing staff around 55 minutes
Anticipated Discharge: > 48 hours
Subjective/Interval History
-
Date of Service: December 04, 2024
No chest pain
No sob
No fevers
Objective Data
-
Labs:
Laboratory Results
12/03/24 12/04/24 12/04/24
18:22 03:13 10:25
APTT 89.9 H 67.6 H Pending
Vital Signs:
Vital Signs
Temp Pulse Resp BP Pulse Ox
98.2 F 71 18 120/76 96
12/04/24 03:17 12/04/24 03:15 12/04/24 03:17 12/04/24 03:04 12/04/24 03:17
I&O
12/02/24 12/03/24 12/04/24
06:59 06:59 07:59
Intake Total 776 / 776 1320 / 1320
Balance 776 / 776 1320 / 1320
[2024-12-04] MEDS: PROTONIX 40 MG PO (08:59)
[2024-12-04] MEDS: NORVASC 2.5 MG PO (08:59)
[2024-12-04] MEDS: LOW STRENGTH ASPIRIN 81 MG PO (08:59)
[2024-12-04] MEDS: LOPRESSOR 12.5 MG PO ×2 (09:00→20:50)
[2024-12-04 11:05] LABS: APTT 67.2 Sec (23.4-35.0)
--- NOTE | 2024-12-04 11:26 | W.PN.UPDATE ---
Update Note
Progress Note Update
Brief CTS Note
Patient seen and examined alongside Dr. Mcallister
Evaluating for CABG. Perioperative expectations discussed and questions answered.
Current plan is for CABG on 12/07/[address] Mcallister
She remains on heparin and nitroglycerin drips following an episode of chest pain yesterday morning. She remains chest pain-free at this time.
Remainder of medical management per primary team in the interim
--- NOTE | 2024-12-04 11:50 | W.PN.CD ---
Today's Communication / Plan
-
-No angina overnight on nitroglycerin drip and heparin drip; continue.
-Continue aspirin and atorvastatin.
-CABG planned for Thursday.
Impression / Plan
-
84-year-old female with history of hypertension and hyperlipidemia presents with intermittent chest pains that become progressive and more severe prompting her to seek care in the emergency department.
CAD/NSTEMI:
-Found to have severe left main stenosis yesterday--this is a threat to life; CABG evaluation underway--plan for Thursday.
-No angina overnight on nitroglycerin drip and heparin drip; continue.
-Continue aspirin and atorvastatin.
-Continue current dose of metoprolol and amlodipine.
-Echocardiogram revealed an LVEF of 55-60% with mid anteroseptal/inferoseptal hypokinesis and aortic sclerosis without stenosis.
-Troponin trended down, peaked at 0.536.
HTN:
-Remains Stable/fairly controlled.
-Continue current doses of metoprolol tartrate and amlodipine; on nitroglycerin drip.
HLD:
-LDL 113 (goal less than 55)
-Continue atorvastatin 40 mg daily (patient was on simvastatin 10 mg daily at home).
Physical Exam
Vital Signs/Labs
Vital Signs
Temp Pulse Resp BP Pulse Ox
98.1 F 64 18 141/72 97
12/04/24 08:28 12/04/24 11:00 12/04/24 08:28 12/04/24 09:00 12/04/24 08:28
12/03/24 12/04/24 12/05/24
05:59 06:59 06:59
Actual Weight
12/03/24 03:44
12/03/24 03:44
PT 13.8 Sec (11.4-14.6) 12/03/24 03:44
INR 1.03 12/03/24 03:44
APTT 67.2 Sec (23.4-35.0) H 12/04/24 10:45
Triglycerides 88 mg/dl (10-149) 12/02/24 05:37
LDL Cholesterol, Calc 113 mg/dl 12/02/24 05:37
VLDL Cholesterol, Calc 17 mg/dl (0-30) 12/02/24 05:37
HDL Cholesterol 58 mg/dl 12/02/24 05:37
LAB Results
12/01/24 12/01/24 12/01/24
16:48 20:08 23:02
Troponin I 0.145 H* 0.211 H* D 0.343 H* D
12/02/24 12/02/24 12/03/24
05:37 09:48 03:44
Troponin I 0.536 H* D 0.431 H* 0.250 H*
Physical Exam
Constitutional: No acute distress and Comfortable
EENT: Anicteric
Cardiovascular: Rhythm & rate is regular, Pedal edema is absent, Systolic murmur present (/6) and S1S2 is normal
Respiratory: Respiratory effort normal and Lungs clear to auscul.
GI: Soft
Other: Skin (Warm, dry, intact)
Data Reviewed
-
Date of Service: December 04, 2024
EKG: Tracing Personally Visualized and interpreted (Telemetry: Sinus rhythm)
Medical Tests (PFT, Pathology etc): Discussed with Physician (CT surgery) and Discussed with Patient
Labs: Labs Reviewed by me
[2024-12-04] MEDS: LIPITOR 40 MG PO (17:26)
[2024-12-04 18:12] LABS: APTT 103.8 Sec (23.4-35.0)
[2024-12-04] MEDS: HEPARIN 25000 UNITS/250 ML IV (20:51)
[2024-12-05] VITALS (24 sets, daily range): BP systolic 107–162; BP diastolic 52–71; BMI 22.3
[2024-12-05 01:34] LABS: APTT 129.1 Sec (23.4-35.0)
[2024-12-05 09:00] LABS: APTT 86.2 Sec (23.4-35.0)
[2024-12-05] MEDS: LOPRESSOR 12.5 MG PO ×2 (09:19→21:06)
[2024-12-05] MEDS: LOW STRENGTH ASPIRIN 81 MG PO (09:19)
[2024-12-05] MEDS: NORVASC 2.5 MG PO (09:19)
[2024-12-05] MEDS: PROTONIX 40 MG PO (09:19)
--- NOTE | 2024-12-05 09:59 | W.PN.HOSP.TC ---
Today's Communication/Plan
-
see bold
Assessment / Plan
Assessment / Plan
Patient is an 84y F with PMH significant for hypertension and dyslipidemia who presents to ED complaining of chest pain.
# NSTEMI due to multivessel disease
Appreciate cardiology and CT surgery input, continue IV heparin drip and IV nitro drip
Started on beta-hemant, changed aspirin to 81 mg daily, changed statin to atorvastatin 40 mg every afternoon
Echo showed left ventricular ejection fraction is 55-60%. Mid anteroseptal/inferoseptal hypokinesis. Normal right ventricular size and function. Aortic sclerosis without stenosis.
CT chest no focal airspace disease. Carotid US no significant stenosis
Plan for CABG on Thursday 12/07
# Essential Hypertension
Held enalapril for now while on IV NTG.
c/w BB, Nitro gtt, amlodipine 2.5 mg daily
#MARLENY
- SCr = 1.2 , down to 1.1
- Holding ALEE as noted above.
#Essential HTN
c/w IV Nitro for now, keeping it low level only for angina pain
added small dose amlodipine, c/w BB
# Hyponatremia, mild
# Hypokalemia
replaced
DVT Prophylaxis: On IV Heparin
Code Status: Full
Total time spent to see the patient on the floor, examine the patient, review data and lab results, discuss treatment plan with patient, nursing staff around 35 minutes.
Physical Exam
General: No Apparent Distress and Comfortable
HEENT: Normocephalic, Anicteric and Moist Mucous Membranes
Respiratory: Clear; Negative Wheezes,
Cardiac: S1/S2
GI: Soft, Non Tender and Non Distended
Musculoskeletal: No Clubbing, No Cyanosis and No Edema
Skin: Warm
Neuro: AO x 3, she follows commands.
Psych: Calm
Anticipated Discharge: > 48 hours
Subjective/Interval History
-
Date of Service: December 05, 2024
Patient denies chest pain, denies shortness of breath. No fever, no vomiting.
Objective Data
-
Labs:
Laboratory Results
12/05/24 12/05/24 12/05/24
00:39 01:09 08:36
APTT Cancelled 129.1 H 86.2 H
12/05/24 12/05/24
12:30 15:00
APTT Cancelled Pending
Vital Signs:
Vital Signs
Temp Pulse Resp BP Pulse Ox
98 F 62 16 126/61 97
12/05/24 07:54 12/05/24 09:19 12/05/24 07:54 12/05/24 09:19 12/05/24 07:54
I&O
12/04/24 12/05/24 12/06/24
06:59 06:59 06:59
Intake Total 480 / 480
Balance 480 / 480
--- NOTE | 2024-12-05 10:59 | W.PN.CD ---
Today's Communication / Plan
-
CABG planning.
Impression / Plan
-
Impression/Plan: 84-year-old female with history of hypertension and hyperlipidemia admitted with intermittent chest pains that became progressive with and abnormal troponin, consistent with NSTEMI.
#CAD/NSTEMI
-Acute.
-Troponin peaked at 0.536.
-Echocardiogram revealed an LVEF of 55-60% with mid anteroseptal/inferoseptal hypokinesis and aortic sclerosis without stenosis.
-Coronary angiography showed severe left main stenosis yesterday--this is a threat to life. CABG evaluation underway, tentatively planned for Thursday.
-No angina overnight on nitroglycerin drip and heparin drip; continue.
-Continue aspirin and atorvastatin.
-Continue current dose of metoprolol and amlodipine.
#HTN
-Chronic, stable.
-Continue current doses of metoprolol tartrate and amlodipine; on nitroglycerin drip.
#HLD
-Chronic, stable.
-Total cholesterol = 188, LDL = 113, HDL = 58, Triglycerides = 88.
-Continue atorvastatin 40 mg daily (patient was on simvastatin 10 mg daily at home).
-Goal LDL < 55.
Subjective/Interval History:
No acute complaints.
Weight stable.
DATA:
Cardiac Catheterization, 12/02/2024:
CORONARY ANGIOGRAPHY
Dominance: Right
LM: Short vessel with a calcific 95-99% stenosis ostially.
LAD: Large vessel giving rise to a small D1, moderate caliber D2, and small D3. There is a calcific 80% stenosis in the mid-vessel and otherwise mild non-obstructive disease.
LCx: Moderate caliber vessel giving rise to a small OM1, moderate caliber OM2, and small OM3. There is a 50% focal stenosis in the proximal vessel and otherwise non-obstructive disease.
RCA: Large vessel giving rise to a large caliber RPDA, small RPL1, and large RPL2. There is a tortuous segment in the mid-RCA that contains a focal 90% stenosis. There is also moderate Pereira 1,1,1 bifurcation disease at the distal RCA/RPDA/RPAV
bifurcation. There is otherwise mild non-obstructive disease.
Transthoracic Echocardiogram, 12/02/2024:
CONCLUSIONS
Left ventricular ejection fraction is 55-60%. Mid anteroseptal/inferoseptal
hypokinesis.
Normal right ventricular size and function.
Aortic sclerosis without stenosis.
No prior study available for comparison.
CT Chest, 12/03/2024:
IMPRESSION:
No acute findings in the chest.
Extensive coronary artery calcifications.
Hyperdensity within the gallbladder and visualized common bile duct which may represent vicarious excretion of contrast or biliary stones/sludge.
1.4 cm left adrenal nodule which likely represents an adenoma. If there is high clinical concern further evaluation with nonemergent MRI may be considered.
Physical Exam
Vital Signs/Labs
Vital Signs
Temp Pulse Resp BP Pulse Ox
36.6 C 62 16 126/61 97
12/05/24 07:54 12/05/24 09:19 12/05/24 07:54 12/05/24 09:19 12/05/24 07:54
12/03/24 12/04/24 12/05/24
10:59 11:59 11:59
Actual Weight 57 kg
12/03/24 03:44
12/03/24 03:44
PT 13.8 Sec (11.4-14.6) 12/03/24 03:44
INR 1.03 12/03/24 03:44
APTT Cancelled 12/05/24 12:30
Triglycerides 88 mg/dl (10-149) 12/02/24 05:37
LDL Cholesterol, Calc 113 mg/dl 12/02/24 05:37
VLDL Cholesterol, Calc 17 mg/dl (0-30) 03/07/25 05:37
HDL Cholesterol 58 mg/dl 12/02/24 05:37
LAB Results
12/02/24 12/03/24
09:48 03:44
Troponin I 0.431 H* 0.250 H*
Physical Exam
Constitutional: No acute distress and Comfortable
EENT: Anicteric and Moist mucous membranes
Cardiovascular: Rhythm & rate is regular, Pedal edema is absent, JVD pressure is normal, S1S2 is normal and Murmur/rub/gallop absent
Respiratory: Respiratory effort normal, Lungs clear to auscul., Wheeze Absent, Crackles Absent and Rhonchi Absent
GI: Soft, Distention absent, Flat, Non tender and Normal bowel sounds
Neuro/Psych: AO x 3
Data Reviewed
-
Date of Service: December 05, 2024
Medical Decision Making: Reviewed Test Results, Independent Historian Assessment and Test Interpretation
EKG: Tracing Personally Visualized and interpreted and Report Reviewed by me
Echo: Report Reviewed by me
X-Ray/CT/US/MRI/NUC/PET: Image Personally Visualized and interpreted and Report Reviewed by me
Medical Tests (PFT, Pathology etc): Image Personally Visualized and interpreted and Report Reviewed by me
Labs: Labs Reviewed by me
Old Records: Reviewed
--- NOTE | 2024-12-05 14:36 | CM ---
Chart reviewed. Patient is independent of ADLS, lives alone in a split level, 0 DME. Patient is going for surgery on 12/07. Plan is for the patient to return home with CT Transitional RN. CM to follow
[2024-12-05 15:52] LABS: APTT 43.4 Sec (23.4-35.0)
[2024-12-05 17:09] LABS: APTT 50.2 Sec (23.4-35.0)
[2024-12-05] MEDS: LIPITOR 40 MG PO (17:21)
--- NOTE | 2024-12-05 18:06 | PTCARENOTE ---
pt continues to be sr on the monitor, hr in the 70s, vss. pt denies cp, sob. pt ambulating and tolerating well. pt educated on plan of care and verbalized understanding. pt visited with friends throughout the day. heparin and nitro gtt running per
documentation. pt call rick within reach.
--- NOTE | 2024-12-05 18:54 | PTCARENOTE ---
Pt rang call merline, c/o '03/07 cp radiating down her arm.' pt had just ambulated to BR. Pts bp 162/69, o2 98%. ekg complete, notified elías lainez. nitro gtt increased per documentation. pt now resting in bed comfortably. call merline within
reach.
--- NOTE | 2024-12-05 23:08 | W.PN.CT ---
Today's Communication / Plan
-
Plan:
-Cont. current medical management per primary team
-Cont. current meds (ASA, Lopressor, Lipitor, Heparin and NTG gtts)
-Avoid ALEE-I/ARBs/CCB x 48 hrs prior to CABG (d/c'd Amlodipine)
-D/C heparin and NTG gtts water pollution specialist to OR
-Monitor creatinine this AM, given MARLENY
-For CABG by Dr. Mcallister tomorrow, 12/07/24
-Will cont. to closely monitor
Assessment / Plan
-
Assessment:
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
-NSTEMI (peak trop 0.536)
-[place]
-LVEF 55-60% per TTE 12/02/24
-Mild MR, otherwise no significant valvular disease
-HTN
-HLD
-Prediabetes (hgb A1C 5.7)
-Former tobacco use
-MARLENY
Discussed patient care with: Cardiology, Nursing, Respiratory Therapy, Pharmacy and Care Team
Subjective
-
Date of Service: December 05, 2024
Pt c/o mild substernal pressure last night which attributes to gas, states felt better after belching
Objective Data
-
Lab Results
12/03/24 03:44
12/03/24 03:44
PT 13.8 Sec (11.4-14.6) 12/03/24 03:44
INR 1.03 12/03/24 03:44
APTT 50.2 Sec (23.4-35.0) H 12/05/24 16:32
Vital Signs
Vital Signs
Temp Pulse Resp BP Pulse Ox
97.8 F 82 20 141/63 98
12/05/24 19:54 12/05/24 21:06 12/05/24 19:54 12/05/24 21:06 12/05/24 19:[address]
CT Intake/Output/Weight
12/05/24 12/05/24 12/06/24
06:59 18:59 06:59
Intake Total 480 / 1020 540 / 1020
Balance 480 / 1020 540 / 1020
SaO2: 98 (RA)
Physical Exam
-
General: Awake, Oriented and AOx3
Cardiovascular: Regular rate & rhythm and No Murmurs
Respiratory: Clear
Extremities: No Edema
Data Reviewed
-
Lab Results: Results Reviewed
Medications: Active Meds Reviewed
Chest X-Ray: Report Reviewed and Image Reviewed
ECG: Report Reviewed and Image Reviewed
[2024-12-05 23:18] LABS: APTT 123.3 Sec (23.4-35.0)
[2024-12-06] VITALS (21 sets, daily range): BP systolic 98–158; BP diastolic 55–82; BMI 22.5
--- NOTE | 2024-12-06 05:24 | PTCARENOTE ---
Pt remaining on Nitro gtt and Heparin gtt throughout the night, see work list. Pt appearing to be able to get some sleep throughout the night, respirations even unlabored. Pt had no complaints of chest pain after episode at change of shift 12/05,
only pressure that went away with a burp. Pt verbalized she is getting 'a little nerves' about surgery 12/07. Emotional support given. Call bel within reach. Assessment care and vitals as charted.
[2024-12-06] MEDS: HEPARIN 25000 UNITS/250 ML IV (05:39)
[2024-12-06 06:20] LABS: Hemoglobin 11.5 g/dL (12.0-16.0); Mean Corp Hgb Conc. 33.8 g/dL (33.0-37.0); Mean Corpuscular Hgb 30.3 pg (27.0-31.0); Mean Corpuscular Volume 89.7 fL (81.0-99.0); Mean Platelet Volume 11.3 fL (7.4-10.4); Platelet Count 172 10^3/uL (130-400); Red Blood Cell Count 3.79 10^6/uL (4.20-5.40); Red Cell Dist. Width 11.9 % (11.5-14.5); White Blood Cell Count 13.1 10^3/uL (4.8-10.8)
[2024-12-06 06:26] LABS: APTT 80.3 Sec (23.4-35.0)
[2024-12-06 06:40] LABS: Blood Urea Nitrogen 25 mg/dl (7-17); Carbon Dioxide 23 mmol/L (22-30); Chloride 103 mmol/L (98-107); Estimated Creatinine Clearance 36 ml/min; Glucose 115 mg/dl (70-99); Magnesium 1.7 mg/dl (1.6-2.3); Potassium 3.7 mmol/L (3.5-5.1); Sodium 136 mmol/L (135-145); eGFR 56.25
--- NOTE | 2024-12-06 07:47 | W.PN.UPDATE ---
Update Note
Progress Note Update
CARDIAC SURGERY ATTENDING:
I had a long conversation with Mrs. Gambino on Thursday. Her son was present via speaker phone during our conversations. We reviewed her coronary pathology, discussed the proposed operative interventions, reviewed the periprocedural risks
(including, but not limited to, , stroke, SD, arrhythmia, PNA, MARLENY/F, bleeding, and infection), discussed the expected in-hospital postprocedural course, and reviewed the expected outpatient recovery. All questions were answered to the best of
my abilities the patient is agreeable to proceed with surgery. We will plan to proceed to the OR tomorrow, 12/07/2024.
I anticipate coronary artery bypass grafting x 3-4 with RADER to LAD, GSV to RPDA, GSV to RPLB, and possible GSV to OM 2.
Thank you for the opportunity to participate in the care of this kind patient.
Please call with any questions or concerns.
Graham Mcallister MD
[phone]
--- NOTE | 2024-12-06 08:20 | W.PN.CD ---
Today's Communication / Plan
-
CABG tomorrow.
Impression / Plan
-
Impression/Plan: 84-year-old female with history of hypertension and hyperlipidemia admitted with intermittent chest pains that became progressive with and abnormal troponin, consistent with NSTEMI.
#CAD/NSTEMI
-Acute.
-Troponin peaked at 0.536.
-Echocardiogram revealed an LVEF of 55-60% with mid anteroseptal/inferoseptal hypokinesis and aortic sclerosis without stenosis.
-Coronary angiography showed severe left main stenosis yesterday--this is a threat to life. CABG evaluation underway, tentatively planned for Thursday.
-No angina overnight on nitroglycerin drip and heparin drip; continue.
-Continue aspirin and atorvastatin.
-Continue current dose of metoprolol.
#HTN
-Chronic, stable.
-Continue current doses of metoprolol tartrate and nitroglycerin drip.
-Amlodipine held in anticipation of surgery.
#HLD
-Chronic, stable.
-Total cholesterol = 188, LDL = 113, HDL = 58, Triglycerides = 88.
-Continue atorvastatin 40 mg daily (patient was on simvastatin 10 mg daily at home).
-Goal LDL < 55.
Subjective/Interval History:
No acute events.
Amlodipine discontinued.
She feels well but nervous about surgery tomorrow.
DATA:
Cardiac Catheterization, 12/02/2024:
CORONARY ANGIOGRAPHY
Dominance: Right
LM: Short vessel with a calcific 95-99% stenosis ostially.
LAD: Large vessel giving rise to a small D1, moderate caliber D2, and small D3. There is a calcific 80% stenosis in the mid-vessel and otherwise mild non-obstructive disease.
LCx: Moderate caliber vessel giving rise to a small OM1, moderate caliber OM2, and small OM3. There is a 50% focal stenosis in the proximal vessel and otherwise non-obstructive disease.
RCA: Large vessel giving rise to a large caliber RPDA, small RPL1, and large RPL2. There is a tortuous segment in the mid-RCA that contains a focal 90% stenosis. There is also moderate Pereira 1,1,1 bifurcation disease at the distal RCA/RPDA/RPAV
bifurcation. There is otherwise mild non-obstructive disease.
Transthoracic Echocardiogram, 12/02/2024:
CONCLUSIONS
Left ventricular ejection fraction is 55-60%. Mid anteroseptal/inferoseptal
hypokinesis.
Normal right ventricular size and function.
Aortic sclerosis without stenosis.
No prior study available for comparison.
CT Chest, 12/03/2024:
IMPRESSION:
No acute findings in the chest.
Extensive coronary artery calcifications.
Hyperdensity within the gallbladder and visualized common bile duct which may represent vicarious excretion of contrast or biliary stones/sludge.
1.4 cm left adrenal nodule which likely represents an adenoma. If there is high clinical concern further evaluation with nonemergent MRI may be considered.
Physical Exam
Vital Signs/Labs
Vital Signs
Temp Pulse Resp BP Pulse Ox
36.7 C 65 18 117/58 98
12/06/24 00:00 12/06/24 05:00 12/06/24 00:00 12/06/24 05:00 12/06/24 07:25
12/04/24 12/05/24 12/06/24
11:59 11:59 11:59
Actual Weight 57 kg 57.7 kg
12/06/24 05:55
12/06/24 05:55
PT 13.8 Sec (11.4-14.6) 12/03/24 03:44
INR 1.03 12/03/24 03:44
APTT 80.3 Sec (23.4-35.0) H 12/06/24 05:55
Magnesium 1.7 mg/dl (1.6-2.3) 12/06/24 05:55
Triglycerides 88 mg/dl (10-149) 12/02/24 05:37
LDL Cholesterol, Calc 113 mg/dl 12/02/24 05:37
VLDL Cholesterol, Calc 17 mg/dl (0-30) 12/02/24 05:37
HDL Cholesterol 58 mg/dl 12/02/24 05:37
Physical Exam
Constitutional: No acute distress and Comfortable
EENT: Anicteric and Moist mucous membranes
Cardiovascular: Rhythm & rate is regular, Pedal edema is absent, JVD pressure is normal, S1S2 is normal and Murmur/rub/gallop absent
Respiratory: Respiratory effort normal, Lungs clear to auscul., Wheeze Absent, Crackles Absent and Rhonchi Absent
GI: Soft, Distention absent, Flat, Non tender and Normal bowel sounds
Neuro/Psych: AO x 3
Data Reviewed
-
Date of Service: December 06, 2024
Medical Decision Making: Reviewed Test Results, Independent Historian Assessment, Test Interpretation and Review of Case with other Provider
EKG: Tracing Personally Visualized and interpreted and Report Reviewed by me
Echo: Report Reviewed by me
X-Ray/CT/US/MRI/NUC/PET: Image Personally Visualized and interpreted and Report Reviewed by me
Medical Tests (PFT, Pathology etc): Report Reviewed by me
Labs: Labs Reviewed by me
Old Records: Reviewed
[2024-12-06] MEDS: LOW STRENGTH ASPIRIN 81 MG PO (08:21)
[2024-12-06] MEDS: PROTONIX 40 MG PO (08:21)
[2024-12-06] MEDS: LOPRESSOR 12.5 MG PO ×2 (08:22→21:52)
--- NOTE | 2024-12-06 09:12 | W.PN.HOSP.TC ---
Today's Communication/Plan
-
For CABG tomorrow
Assessment / Plan
Assessment / Plan
Patient is an 84y F with PMH significant for hypertension and dyslipidemia who presents to ED complaining of chest pain.
# NSTEMI due to multivessel disease
Appreciate cardiology and CT surgery input, continue IV heparin drip and IV nitro drip
Started on beta-hemant, changed aspirin to 81 mg daily, changed statin to atorvastatin 40 mg every afternoon
Echo showed left ventricular ejection fraction is 55-60%. Mid anteroseptal/inferoseptal hypokinesis. Normal right ventricular size and function. Aortic sclerosis without stenosis.
CT chest no focal airspace disease. Carotid US no significant stenosis
Plan for CABG on Thursday 12/07
# Essential Hypertension
Held enalapril for now while on IV NTG.
c/w BB, Nitro gtt, s/p amlodipine 2.5 mg daily
#MARLENY
- SCr = 1.2 , down to 1.1
- Holding ALEE as noted above.
# Hyponatremia, mild
# Hypokalemia
Repleted and resolved
#Left first MTP pain
From IV pole trauma
Pain meds as needed
DVT Prophylaxis: On IV Heparin
Code Status: Full
Total time spent to see the patient on the floor, examine the patient, review data and lab results, discuss treatment plan with patient, nursing staff around 39 minutes.
Physical Exam
General: No Apparent Distress and Comfortable
HEENT: Normocephalic, Anicteric and Moist Mucous Membranes
Respiratory: Clear; Negative Wheezes,
Cardiac: S1/S2
GI: Soft, Non Tender and Non Distended
Musculoskeletal: No Clubbing, No Cyanosis and No Edema
Erythema and tenderness of left first MTP joint
Neuro: AO x 3, she follows commands.
Psych: Calm
Anticipated Discharge: > 48 hours
Subjective/Interval History
-
Date of Service: December 06, 2024
Patient reports some gas pain. She also complains of pain in her left first MTP joint, from being hit by the IV pole. No fever, no vomiting. No shortness of breath.
Objective Data
-
Labs:
Laboratory Results
12/05/24 12/06/24 12/06/24
22:58 05:55 12:00
WBC 13.1 H
Hgb 11.5 L
Hct 34.0 L
Plt Count 172
APTT 123.3 H 80.3 H Pending
Sodium 136
Potassium 3.7
Chloride 103
Carbon Dioxide 23
BUN 25 H
Creatinine 1.0
Glucose 115 H
Calcium 9.0
Vital Signs:
Vital Signs
Temp Pulse Resp BP Pulse Ox
98.1 F 72 18 131/69 98
12/06/24 00:00 12/06/24 08:00 12/06/24 00:00 12/06/24 08:00 12/06/24 07:25
I&O
12/05/24 12/06/24 12/07/24
06:59 06:59 06:59
Intake Total 480 / 480 1161.8 / 1161.8
Balance 480 / 480 1161.8 / 1161.8
--- NOTE | 2024-12-06 11:22 | CM ---
Chart reviewed. Preoperative teaching done. Reviewed preoperative and postoperative instructions and restrictions, along with showering guidelines. Patient is agreeable to a home visit by CT Transitional RN. Patient is independent of ADLS, lives
alone in a split level house, 0 DME. Patient is unsure if she is going to return home or go to her sisters house in [place], [place]. Plan is for the patient to return home with CT Transitional vs sisters house. CM to follow
[2024-12-06 13:04] LABS: APTT 77.8 Sec (23.4-35.0)
[2024-12-06] MEDS: TYLENOL 1000 MG PO ×2 (16:35→21:56)
--- NOTE | 2024-12-06 19:20 | PTCARENOTE ---
Pt received this am with no c/o of any pain or sob. Pt oob to BR with 1 assist, gait steady. Heparin and Aleksandar infusing as ordered. Pt later c/o of left great toe discomfort. Area mildly reddened and swollen. Pt sent for foot xray. Medicated with
Tylenol with relief and foot elevated on a pillow with ice.Pt transferred to [facility] at 1700. Report given to RN receiving pt.
[2024-12-06] MEDS: LIPITOR PO (22:13)
[2024-12-06] MEDS: LIPITOR 40 MG PO (22:44)
[2024-12-07] VITALS (23 sets, daily range): BP systolic 83–161; BP diastolic 38–96; BMI 22.2
--- NOTE | 2024-12-07 | PTCARENOTE ---
Patient reassessed. Preop clipping and hygiene care provided. Remains SR on the monitor. Call rick within reach.
[2024-12-07 05:18] LABS: APTT 88.4 Sec (23.4-35.0)
[2024-12-07] MEDS: MAGNESIUM OXIDE 500 MG PO (05:41)
[2024-12-07] MEDS: PROTONIX 40 MG PO (05:41)
[2024-12-07] MEDS: BACTROBAN 2% OINTMENT 1 APPLIC NASAL ×2 (05:42→21:09)
[2024-12-07] MEDS: LOPRESSOR 12.5 MG PO (06:16)
--- NOTE | 2024-12-07 07:14 | W.PN.CD ---
Today's Communication / Plan
-
CABG this morning.
Warm/cold compresses to left great toe.
Analgesia.
Colchicine 0.6 mg when taking PO.
Impression / Plan
-
Impression/Plan: 84-year-old female with history of hypertension and hyperlipidemia admitted with intermittent chest pains that became progressive with and abnormal troponin, consistent with NSTEMI.
#CAD/NSTEMI
-Acute, threat to life.
-Troponin peaked at 0.536.
-Echocardiogram revealed an LVEF of 55-60% with mid anteroseptal/inferoseptal hypokinesis and aortic sclerosis without stenosis.
-Coronary angiography showed severe left main stenosis yesterday--this is a threat to life. CABG evaluation underway, tentatively planned for Thursday.
-CABG this morning.
-Anticipate routine post operative care.
-Wean vent to extubation.
-Titrate inotropes/vasopressors to a MAP > 65 mmHg and a CI > 1.8 L/min/m2.
-Pain/chest tube management per CT surgery.
#HTN
-Chronic, stable.
-Restart beta blockers as hemodynamics will permit.
#HLD
-Chronic, stable.
-Total cholesterol = 188, LDL = 113, HDL = 58, Triglycerides = 88.
-Goal LDL < 55.
-Restart statin when taking PO.
#Left great toe inflammation
-Acute.
-I suspect pseudogout/crystalline arthropathy vs. reactive arthritis (less likely, no recent GI/ infection, no urethritis or conjunctivitis) as acute cellulitis seems less likely in this setting without injury.
-Apply alternating warm/cold compresses (for no more than 20 minutes at a time).
-Analgesia (probably provided post CABG).
-Start colchicine 0.6 mg BID when taking PO.
Subjective/Interval History:
No acute events.
CABG this morning.
Left great toe rubor/edema yesteday. Foot XR shows local edema.
DATA:
Cardiac Catheterization, 12/02/2024:
CORONARY ANGIOGRAPHY
Dominance: Right
LM: Short vessel with a calcific 95-99% stenosis ostially.
LAD: Large vessel giving rise to a small D1, moderate caliber D2, and small D3. There is a calcific 80% stenosis in the mid-vessel and otherwise mild non-obstructive disease.
LCx: Moderate caliber vessel giving rise to a small OM1, moderate caliber OM2, and small OM3. There is a 50% focal stenosis in the proximal vessel and otherwise non-obstructive disease.
RCA: Large vessel giving rise to a large caliber RPDA, small RPL1, and large RPL2. There is a tortuous segment in the mid-RCA that contains a focal 90% stenosis. There is also moderate Pereira 1,1,1 bifurcation disease at the distal RCA/RPDA/RPAV
bifurcation. There is otherwise mild non-obstructive disease.
Transthoracic Echocardiogram, 12/02/2024:
CONCLUSIONS
Left ventricular ejection fraction is 55-60%. Mid anteroseptal/inferoseptal
hypokinesis.
Normal right ventricular size and function.
Aortic sclerosis without stenosis.
No prior study available for comparison.
CT Chest, 12/03/2024:
IMPRESSION:
No acute findings in the chest.
Extensive coronary artery calcifications.
Hyperdensity within the gallbladder and visualized common bile duct which may represent vicarious excretion of contrast or biliary stones/sludge.
1.4 cm left adrenal nodule which likely represents an adenoma. If there is high clinical concern further evaluation with nonemergent MRI may be considered.
Physical Exam
Vital Signs/Labs
Vital Signs
Temp Pulse Resp BP Pulse Ox
36.6 C 75 20 133/65 96
12/07/24 00:00 12/07/24 06:16 12/07/24 00:00 12/07/24 06:16 12/07/24 01:00
12/05/24 12/06/24 12/07/24
11:59 11:59 11:59
Actual Weight 57 kg 57.7 kg
12/06/24 05:55
12/06/24 05:55
PT 13.8 Sec (11.4-14.6) 12/03/24 03:44
INR 1.03 12/03/24 03:44
APTT 88.4 Sec (23.4-35.0) H 12/07/24 04:39
Magnesium 1.7 mg/dl (1.6-2.3) 12/06/24 05:55
Triglycerides 88 mg/dl (10-149) 12/02/24 05:37
LDL Cholesterol, Calc 113 mg/dl 12/02/24 05:37
VLDL Cholesterol, Calc 17 mg/dl (0-30) 12/02/24 05:37
HDL Cholesterol 58 mg/dl 12/02/24 05:37
Physical Exam
Constitutional: No acute distress and Comfortable
EENT: Other (ET tube in place.)
Neuro/Psych: Other (Sedated, currently undergoing open heart surgery.)
Data Reviewed
-
Date of Service: December 07, 2024
Medical Decision Making: Reviewed Test Results, Test Interpretation and Review of Case with other Provider
EKG: Tracing Personally Visualized and interpreted and Report Reviewed by me
Echo: Tracing Personally Visualized and interpreted and Report Reviewed by me
X-Ray/CT/US/MRI/NUC/PET: Image Personally Visualized and interpreted and Report Reviewed by me
Medical Tests (PFT, Pathology etc): Image Personally Visualized and interpreted, Report Reviewed by me, Discussed with Physician and Discussed with Nurse
Labs: Labs Reviewed by me
Old Records: Reviewed
--- NOTE | 2024-12-07 07:29 | PTCARENOTE ---
Patient taken to [facility] at approx 0640. Prior to transfer patient c/o chest pressure with increase in BP also reports anxiety r/t procedure. CT PA notified. Advised to raise nitro gtt to 15. Patient transported on nitro gtt and heparin gtt. Report
given to [facility] nurse.
[2024-12-07 07:45] LABS: Urine Albumin 1+ (Neg - Trace); Urine Bilirubin Negative (Negative); Urine Character Slightly Cloudy (Clear); Urine Color Straw; Urine Glucose Negative (Negative); Urine Ketone Negative (Negative); Urine Leukocyte Negative (Negative); Urine Nitrite Negative (Negative); Urine Occult Blood Negative (Negative); Urine Urobilinogen Negative (Neg - 1+)
[2024-12-07 07:52] LABS: ACT+ - POC 104 Seconds (82-134)
[2024-12-07 07:58] LABS: Urine Bacteria Few (Negative); Urine Red Blood Cell 0-2 /HPF (0-2); Urine White Cell 0-2 /HPF (0-5)
[2024-12-07 09:31] LABS: ACT+ - POC 781 Seconds (82-134)
[2024-12-07 09:31] LABS: B.E. - POC 2.8 mmol/L; Glucose - POC 108 mg/dl (70-99); HCO3 - POC 26 mmol/L (21-28); Hematocrit - POC 33 % PCV (37-47); Hemodilution- POC Yes; Hemoglobin Calculated - POC 11.4; Ionized Calcium - POC 1.08 mmol/L (1.15-1.33); Lactate - POC 0.32 mmol/L (0.36-0.75); O2 Saturation %Calculated-POC 99.9 % (94-98); PCO2 - POC 35 mmHg (35-48); PO2 - POC 286 mmHg (83-108); POC Comment PRE; Potassium - POC 3.3 mmol/L (3.5-5.1); Sodium - POC 142 mmol/L (136-145); Specimen Type - POC Arterial; pH - POC 7.48 (7.35-7.45)
[2024-12-07 09:48] LABS: ACT+ - POC 486 Seconds (82-134)
--- NOTE | 2024-12-07 10:12 | CM ---
Patient in OR today for planned CABG.
Reviewed initial assessment. Pt. resides alone in a split level home. She is functionally indep. w/ ADLs, mobility prior to admission. Pt. works full-time.
DC plan is anticipated for home w/ CT Transitional Care RN.
Will cont. to follow.
[2024-12-07 10:14] LABS: B.E. - POC 1.5 mmol/L; Glucose - POC 169 mg/dl (70-99); HCO3 - POC 27 mmol/L (21-28); Hematocrit - POC 23 % PCV (37-47); Hemodilution- POC Yes; Hemoglobin Calculated - POC 7.9; Ionized Calcium - POC 0.87 mmol/L (1.15-1.33); Lactate - POC 2.35 mmol/L (0.36-0.75); PCO2 - POC 45 mmHg (35-48); PO2 - POC 616 mmHg (83-108); POC Comment CPB; Potassium - POC 4.2 mmol/L (3.5-5.1); Sodium - POC 138 mmol/L (136-145); Specimen Type - POC Arterial; pH - POC 7.38 (7.35-7.45)
[2024-12-07 10:20] LABS: ACT+ - POC 468 Seconds (82-134)
[2024-12-07 10:37] LABS: ACT+ - POC 594 Seconds (82-134)
[2024-12-07] MEDS: LOW STRENGTH ASPIRIN PO (10:38)
[2024-12-07] MEDS: PROTONIX PO (10:38)
[2024-12-07] MEDS: LOPRESSOR PO (10:38)
[2024-12-07 10:58] LABS: B.E. - POC 3.4 mmol/L; Glucose - POC 144 mg/dl (70-99); HCO3 - POC 28 mmol/L (21-28); Hematocrit - POC 23 % PCV (37-47); Hemodilution- POC Yes; Ionized Calcium - POC 0.94 mmol/L (1.15-1.33); Lactate - POC 1.69 mmol/L (0.36-0.75); O2 Saturation %Calculated-POC 99.9 % (94-98); PCO2 - POC 39 mmHg (35-48); PO2 - POC 268 mmHg (83-108); POC Comment CPB; Potassium - POC 4.4 mmol/L (3.5-5.1); Sodium - POC 141 mmol/L (136-145); Specimen Type - POC Arterial; pH - POC 7.46 (7.35-7.45)
[2024-12-07 11:09] LABS: ACT+ - POC 539 Seconds (82-134)
[2024-12-07 11:24] LABS: Glucose - POC 123 mg/dl (70-99); HCO3 - POC 26 mmol/L (21-28); Hematocrit - POC 24 % PCV (37-47); Hemodilution- POC Yes; Hemoglobin Calculated - POC 8.2; Ionized Calcium - POC 0.93 mmol/L (1.15-1.33); Lactate - POC 2.52 mmol/L (0.36-0.75); O2 Saturation %Calculated-POC 99.9 % (94-98); PCO2 - POC 37 mmHg (35-48); PO2 - POC 310 mmHg (83-108); POC Comment CPB; Potassium - POC 4.3 mmol/L (3.5-5.1); Sodium - POC 142 mmol/L (136-145); Specimen Type - POC Arterial; pH - POC 7.45 (7.35-7.45)
[2024-12-07 11:42] LABS: ACT+ - POC 544 Seconds (82-134)
[2024-12-07 12:02] LABS: B.E. - POC -0.3 mmol/L; Glucose - POC 130 mg/dl (70-99); HCO3 - POC 25 mmol/L (21-28); Hematocrit - POC 25 % PCV (37-47); Hemodilution- POC Yes; Hemoglobin Calculated - POC 8.5; Ionized Calcium - POC 0.95 mmol/L (1.15-1.33); O2 Saturation %Calculated-POC 99.8 % (94-98); PCO2 - POC 41 mmHg (35-48); PO2 - POC 240 mmHg (83-108); POC Comment WARM; Potassium - POC 4.3 mmol/L (3.5-5.1); Sodium - POC 143 mmol/L (136-145); Specimen Type - POC Arterial; pH - POC 7.39 (7.35-7.45)
[2024-12-07 12:30] LABS: B.E. - POC -0.6 mmol/L; Glucose - POC 138 mg/dl (70-99); HCO3 - POC 24 mmol/L (21-28); Hematocrit - POC 24 % PCV (37-47); Hemodilution- POC Yes; Hemoglobin Calculated - POC 8.1; Ionized Calcium - POC 0.96 mmol/L (1.15-1.33); Lactate - POC 2.48 mmol/L (0.36-0.75); O2 Saturation %Calculated-POC 99.9 % (94-98); PCO2 - POC 40 mmHg (35-48); PO2 - POC 311 mmHg (83-108); POC Comment WARM; Potassium - POC 3.8 mmol/L (3.5-5.1); Sodium - POC 145 mmol/L (136-145); Specimen Type - POC Arterial; pH - POC 7.39 (7.35-7.45)
[2024-12-07 12:32] LABS: ACT+ - POC 112 Seconds (82-134)
[2024-12-07 12:36] LABS: B.E. - POC -2.4 mmol/L; Glucose - POC 146 mg/dl (70-99); HCO3 - POC 22 mmol/L (21-28); Hematocrit - POC 24 % PCV (37-47); Hemodilution- POC Yes; Hemoglobin Calculated - POC 8.1; Ionized Calcium - POC 1.35 mmol/L (1.15-1.33); Lactate - POC 3.07 mmol/L (0.36-0.75); O2 Saturation %Calculated-POC 98.8 % (94-98); PCO2 - POC 33 mmHg (35-48); PO2 - POC 121 mmHg (83-108); POC Comment POST; Potassium - POC 3.7 mmol/L (3.5-5.1); Sodium - POC 145 mmol/L (136-145); Specimen Type - POC Arterial; pH - POC 7.42 (7.35-7.45)
--- NOTE | 2024-12-07 13:00 | CON.INTV ---
Consultation
Consultation Request
Date/Time Consultation Requested: 12/07/2024 - 124
Date/Time Consultation Performed: 12/07/2024 - 125
Requesting Provider: ADELSO Lind
Performing Provider: Dr. Boyd
Reason for Consultation: s/p CABG
Medical History
-
Chief Complaint: Chest pain
History of Present Illness:
84-year-old female former tobacco smoker with a past medical history of hypertension and hyperlipidemia who presents with upper chest pain which was intermittent. Over the past week prior to arrival, pain has been more frequent and more severe. It
was not associated with strenuous activity and occurred more when under stress and typically while at work. She also has been frequently belching and that her symptoms previously had improved with Tums or Pepcid. She had started recently taking a
daily aspirin but only in the past week or so since her pain began. She saw her PCP on Thursday and told them her symptoms and she was advised to go to [facility] to have an EKG done but she declined at that time. On the day of ER arrival she had 3
episodes of chest pain while at work and so she came to the hospital for further evaluation. Initial troponin was elevated at 0.145. Initial EKG showed diffuse ST depressions with ST elevation of aVR. In the ER she was given aspirin, started on
heparin drip and also nitroglycerin drip and was admitted to the IVU for an NSTEMI. Cardiology was consulted, and echo on 12/02 showed an LVEF of 55-60% with mild anteroseptal/inferoseptal hypokinesis with normal RV size and function. Left heart
catheterization on 12/02/2024 showed severe calcific multivessel CAD including a high-grade ostial left main stenotic lesion, with mildly elevated LV filling pressures with no aortic stenosis (LVEDP: 18 mmHg). Cardiothoracic surgery was evaluated to
assess the patient for CABG. The risks and benefits of a CABG were discussed with the patient and she has agreed to this procedure. Today the patient went underwent a CABG x 4, and during the case there was hemodynamic instability and patient
required emergent cannulation for cardiopulmonary bypass support with subsequent rapid pentecostal and maintenance of MAP. There also were no significant arrhythmias during this period of hypotension. Patient then transferred to the CVICU once the
case was finished with bilateral pleural chest tubes and mediastinal chest tubes x 2. Chair service is now consulted for additional management/recommendations.
When I saw the patient, she was resting in bed on a pressure support trial on PS 5, PEEP: 5, at FiO2 40%, with PIP: 11 cmH2O, VTe: 271 cc and breathing at 16 breaths/min. She was saturating 98%, heart rate 89, BP via left radial A-line: 104/54, and
BP via NIBP: 119/70. Currently on dobutamine gtt at 2 mcg/kg/min and insulin drip at 0.8 units/hr.
PMHx: Hypertension, hyperlipidemia and former tobacco smoker (quit 20 years ago with [id number]-[id number] history)
PSHx: D&C
Past Medical History
Past Medical History: Other (Above as per HPI)
Past Surgical History: Other (Above as per HPI)
Social History
Tobacco: Former Smoker (Quit 20 years ago with 96-vnlz-[id number] history)
Alcohol: Occasional
Drug: None
Family History
Family History: Hypertension
Allergies / Home Medications
Allergies
Allergy/AdvReac Type Severity Reaction Status Date / Time
pepper (genus Capsicum) Allergy Unknown Verified 12/01/24 16:43
tetanus and diphtheria Allergy Unknown Verified 12/01/24 16:43
toxoids
Home Medications
�Medication �Instructions �Recorded �Confirmed �Last Taken �Type
aspirin 325 mg tablet 650 mg PO DAILYPRN PRN 12/01/24 12/01/24 4 Days Ago History
preventative measure ~11/27/24
enalapril maleate 20 mg tablet 20 mg PO DAILY Blood Pressure 12/01/24 12/01/24 12/01/24 History
hydrochlorothiazide 25 mg tablet 25 mg PO DAILY Blood Pressure 12/01/24 12/01/24 12/01/24 History
omega 0-gff-beh-fish oil 1,000 mg 1 cap PO HS High Cholesterol 12/01/24 12/01/24 11/30/24 History
(120 mg-180 mg) capsule (Fish Oil)
simvastatin 10 mg tablet 10 mg PO HS High Cholesterol 12/01/24 12/01/24 11/30/24 History
Review of Systems
-
Unable to Obtain full review of systems at this time due to: Patient Intubation
Vitals / Labs / Diagnostic Testing
Vital Signs
Temp Pulse Resp BP Pulse Ox
99.1 F 94 16 123/70 100
12/07/24 18:02 12/07/24 18:00 12/07/24 18:02 12/07/24 18:00 12/07/24 18:02
Lab Data
12/07/24 17:47
12/07/24 13:49
Laboratory Results
12/07/24 12/07/24 12/07/24
04:39 13:49 17:07
PT 21.0 H
INR 1.76
APTT 88.4 H 34.2
pH 7.35 7.38
pCO2 40 H 38 H
pO2 127 H 148 H
HCO3 22.1 22.5
O2 Delivery Level
Diagnostic Testing:
Physical Exam
-
HEENT: Normocephalic, Anicteric and Other (ETT in place)
Cardiovascular: S1/S2 and Peripheral Edema (negative)
Respiratory: Clear, Wheeze (negative), Rales (negative), Rhonchi (negative), Other (Mechanical breath sounds heard bilaterally) and Other (Chest tube: Bilateral pleural chest tubes + mediastinal chest tubes x 2)
GI: Soft, Non Distended, Non Tender and Normal Bowel Sounds
Neurology: Tremors (negative) and Other (Sedated)
Skin: Warm and Dry
General: Respiratory Distress (negative), Comfortable, Fever (negative) and Chills (negative)
Assessment
-
Assessment: 84-year-old female former tobacco smoker with a past medical history of hypertension and hyperlipidemia who presents with upper chest pain which was intermittent. Over the past week prior to arrival, pain has been more frequent and
more severe. It was not associated with strenuous activity and occurred more when under stress and typically while at work. She also has been frequently belching and that her symptoms previously had improved with Tums or Pepcid. She had started
recently taking a daily aspirin but only in the past week or so since her pain began. She saw her PCP on Thursday and told them her symptoms and she was advised to go to [facility] to have an EKG done but she declined at that time. On the day of ER
arrival she had 3 episodes of chest pain while at work and so she came to the hospital for further evaluation. Initial troponin was elevated at 0.145. Initial EKG showed diffuse ST depressions with ST elevation of aVR. In the ER she was given
aspirin, started on heparin drip and also nitroglycerin drip and was admitted to the IVU for an NSTEMI. Cardiology was consulted, and echo on 12/02 showed an LVEF of 55-60% with mild anteroseptal/inferoseptal hypokinesis with normal RV size and
function. Left heart catheterization on 12/02/2024 showed severe calcific multivessel CAD including a high-grade ostial left main stenotic lesion, with mildly elevated LV filling pressures with no aortic stenosis (LVEDP: 18 mmHg). Cardiothoracic
surgery was evaluated to assess the patient for CABG. The risks and benefits of a CABG were discussed with the patient and she has agreed to this procedure. On 12/07/2024,she underwent a CABG x 4, and during the case there was hemodynamic
instability and patient required emergent cannulation for cardiopulmonary bypass support with subsequent rapid pentecostal and maintenance of MAP. There also were no significant arrhythmias during this period of hypotension. Patient then
transferred to the CVICU once the case was finished with bilateral pleural chest tubes and mediastinal chest tubes x 2. Chair service is now consulted for additional management/recommendations.
Chronic conditions PROJECT ADMIN: Hypertension, hyperlipidemia and former tobacco smoker (quit 20 years ago with 54-chcv-wdzq history)
Impression:
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
#Acute anemia due to above
#Acute thrombocytopenia due to above
#Former tobacco smoker (quit 20 years ago with 46-rdef-[id number] history)
#History of hypertension
#History of hyperlipidemia
Plan:
Ventilator settings reviewed
FiO2 will be weaned to maintain SpO2 >90-94%
Minute ventilation will be adjusted
Arterial blood gases will be monitored
Spontaneous breathing trial will be attempted with hopeful extubation after anesthesia/sedation wear off
prn nebulized bronchodilators
Pulmonary artery catheter parameters will be followed
Pressors/antihypertensive/inotropes/diuretics will be provided as needed
Maintain MAP>65
Replete electrolytes with K>4, Mg>2
Monitor chest tube output (bilateral pleural chest tubes + mediastinal chest tubes x 2)
Monitor hemoglobin
Monitor platelet count and coags
Transfuse blood products as needed to maintain Hb>7g/dL, plt>50k (given post-operative status)
CT surgery managing chest tubes
Monitor blood sugar to maintain euglycemia with goal BG 140-180
Insulin drip per protocol
Aspiration precautions
VAP prevention protocol
DVT prophylaxis
Early nutrition
Early mobilization
Critical care statement: A total of 46 minutes of critical care time was provided for this patient today. This includes management of ventilator, spontaneous breathing trial, arterial blood gases, pressors, of unstable vital signs, evaluation of the
patient at bedside, reviewing the patient's pertinent medical records including radiographs, microbiology, laboratory evaluations, and discussion with primary team and critical care nursing.
--- NOTE | 2024-12-07 13:03 | W.CVOR.SURPR ---
CVOR Surgeon Immed Pre Op
-
I have examined this patient prior to performance of the scheduled procedure.
The patient's condition is unchanged from the time of the dictated/written History and
Physical and the patient is able to undergo the scheduled procedure.
--- NOTE | 2024-12-07 13:03 | W.IMMPOSTOP ---
Addendum entered and electronically signed by Graham Mcallister MD 12/07/24 14:44:
[id number]
Original Note:
Surgical Immed Post Op Note
-
CARDIAC SURGERY OPERATIVE NOTE:
Preoperative Dx:
MVCAD including significant LM CAD (95+%)
Postoperative Dx:
Same
Procedures:
1) Median sternotomy
2) Takedown of GEGE (narrow pedicle)
3) Endoscopic harvest of B/L thigh GSV segments
4) Emergent establishment of CPB support
5) CABG x 4 (GEGE to LAD, GSV to OM2, GSV to RPDA, GSV to RPLB)
Surgeon:
Graham Mcallister M.D.
Assistants:
Tierra AguirreAJuanyCVeronica; endoscopic harvest/prep of B/L thigh GSVs; health assistant throughout
Kenneth CristinaCVeronica; endoscopic harvest/prep of B/L thigh GSVs; closure of B/L LE incisions
Anesthesia:
Vinicio Sinha M.D. and Tamra SingerN.A.
Perfusion:
Lelo YeungPVeronica; XC: 94min, CPB: 170min
Findings:
GEGE was a healthy, but small conduit w/ good blood flow; ELD 1.50mm
GSV was healthy, but generally small conduit w/ ELD 2.5-3.0mm
LAD was visible on the epicardial surface, scattered calcifications, ELD 1.75mm at midpoint anastomosis
OM2 was visible on the epicardial surface, scattered calcifications, ELD 1.25mm, anastomosis performed over 1.0mm coronary shunt.
RPDA was visible on the epicardial surface, scattered calcifications, ELD 2.25mm
RPLB was visible on the epicardial surface, scattered calcifications, ELD 2.25mm
Good flow in all bypasses on transit-time U/S flow probe assessment
Post-BISHNU: LVEF 40-45%, global hypokinesis w/ anterior moving less than inferior (baseline), moderate MR
Implants:
CT x 4 (B/L pleural, inferior mediastinal, superior mediastinal)
Sternal wires x 9
Complications:
Pt. w/ episode of transient hemodynamic instability w/ SBP to 60s while GEGE harvest was being completed. This was responsive to pharmacologic therapy w/ good recovery & maintenance of BP/HR.
Pt w/ additional, more profound episode of hemodynamic instability during the establishment of pericardial cradle. This was only transiently responsive to pharmacologic therapy. Full-dose heparin administered w/ MAPs in 40s-50s. Pt. emergently
cannulated and placed on CPB support w/ rapid mormon & maintenance of MAPs. There were no significant arrhythmias during this period of hypotension. Pt. w/ minor HARVINDER w/ return to baseline w/ mormon of MAPs. Time from heparin to full-CPB
was approximately 6mins.
Condition:
109 sinus (0.6/0.2); 96/58; CVP 10; 100%
GTTS: dobutamine 2, levophed 6, insulin 1, precedex 0.5
Stable/guarded to CVICU
CT - 10cc in mediastinals 8cc in pleurals, post 30 min
[2024-12-07] MEDS: TYLENOL PO (13:28)
[2024-12-07 13:55] LABS: Glucose - Point of Care 153 mg/dl (70-99)
[2024-12-07 14:03] LABS: B.E. -3.3 mmol/L; HCO3 22.1 mmol/L (21-28); Ionized Calcium 1.17 mMOL/L (1.15-1.33); O2 Saturation % 98.8 % (94-98); PCO2 40 mmHg (32-35); PO2 127 mmHg (83-108); Potassium 3.9 mMOL/L (3.5-5.1); Sodium 138 mMOL/L (136-145); pH 7.35 (7.35-7.45)
--- NOTE | 2024-12-07 14:08 | W.PN.UPDATE ---
Update Note
Progress Note Update
84-year-old female was admitted on 12/01/2024 with worsening chest pain. Ruled in for NSTEMI with peak troponin 0.5. Treated with IV heparin and nitroglycerin. Taken for left heart cath on 12/02 which reported left main/triple-vessel
coronary disease.
IV fluids: 1500
U.O.:� 450
Blood:� 1PRBC
Wires:� none
Inotropes:� Dobutamine @ 2
Pressors:� none
Sedatives:� Precedex @ 0.5
�
NEURO: sedated , pupils +2mm B/L
RESP: #8OT @23cm> 500/40%/12/5. Lungs clear B/L. 2 mediastinal (35cc on arrival) and R/L pleural (30cc on arrival) chest tubes to -20cm suction. Sanguineous drainage, no airleak, no crepitus
CV: RRR +S1, S2, no S3, no�rub, no murmur. Dermabond to median sternotomy. RIJ w/ slick
ABD: round, soft, no BS B/L
EXT: no edema, +2/4 DP pulses B/L, no femoral bruit, LE ALEE wrap intact; left radial A-line intact
: Santana with clear yellow urine
�
A/P: POD #0 s/p CABG x 4 (GEGE to LAD, GSV to OM2, GSV to RPDA, GSV to RPLB) with urgent initiation of bypass for hypotension
Report of EF�40% post-procedure
- wean and extubate
# CAD/NSTEMI
- will require ASA, Plavix, statin (home-simvastatin 10mg HS), beta hemant
# HTN
- resume home enalapril as BP permits
�
# acute surgical blood loss anemia-expected
- trend CBC (1PRBC intra-op)
�
�
# prediabetes (A1C 5.7)
- insulin infusion x 24h
- SSI if needed after infusion DC'd
[2024-12-07] MEDS: KCL 50 IV ×2 (14:11→16:13)
[2024-12-07] MEDS: ANCEF 10 IV ×2 (14:12)
[2024-12-07] MEDS: NSS 500 IV (14:12)
--- NOTE | 2024-12-07 14:14 | PTCARENOTE ---
Received pt from CVOR at 1345; pt intubated and sedated; Pupils 2mm and reactive; NSR on monitor and VSS; RIJ Cordis with SLIC; Left A line; and PIV x2 all alines leveled and zeroed; Levo, Insulin, Dobutamine and Precedex infusing see flow sheet for
details; Lungs diminished; CT x4 to -20 wall suction, no air leak and no crepitus noted; hypoactive bowel sounds; Santana catheter draining clear yellow urine; weak lower extremity pulses and palpable radial pulses; all surgical dressing C/D?I; see
nursing documentation for further details.
Per Dr Mcallister turn off Precedex and wake pt for neuro status
[2024-12-07 14:17] LABS: Hematocrit 31.2 % (37.0-47.0); Hemoglobin 10.6 g/dL (12.0-16.0); Platelet Count 72 10^3/uL (130-400)
[2024-12-07 14:20] LABS: INR 1.76
[2024-12-07 14:21] LABS: APTT 34.2 Sec (23.4-35.0)
[2024-12-07 14:24] LABS: Blood Urea Nitrogen 16 mg/dl (7-17); Estimated Creatinine Clearance 40 ml/min; Glucose 153 mg/dl (70-99); Magnesium 2.6 mg/dl (1.6-2.3)
[2024-12-07 15:08] LABS: Glucose - Point of Care 131 mg/dl (70-99)
[2024-12-07] MEDS: CALCIUM GLUCONATE 100 IV (15:11)
[2024-12-07] MEDS: PACERONE PO (15:14)
[2024-12-07] MEDS: NEURONTIN PO (15:14)
[2024-12-07 15:57] LABS: Glucose - Point of Care 99 mg/dl (70-99)
--- NOTE | 2024-12-07 16:32 | PTCARENOTE ---
Respiratory at bedside and pt place on CPAP; CHG bath done and senior administrative services officer lead changed; assessment unchanged; NSR on monitor and VSS.
[2024-12-07] MEDS: OFIRMEV 100 IV (16:36)
[2024-12-07 17:04] LABS: Glucose - Point of Care 98 mg/dl (70-99)
[2024-12-07 17:27] LABS: B.E. -2.3 mmol/L; HCO3 22.5 mmol/L (21-28); Ionized Calcium 1.32 mMOL/L (1.15-1.33); O2 Saturation % 98.8 % (94-98); PCO2 38 mmHg (32-35); PO2 148 mmHg (83-108); Potassium 5.7 mMOL/L (3.5-5.1); Sodium 137 mMOL/L (136-145); pH 7.38 (7.35-7.45)
--- NOTE | 2024-12-07 17:52 | PTCARENOTE ---
ABG results reviewed with CVNP; respiratory at bedside and pt extubated.
[2024-12-07 18:01] LABS: Glucose - Point of Care 120 mg/dl (70-99)
[2024-12-07 18:02] LABS: Hematocrit 31.4 % (37.0-47.0); Hemoglobin 10.8 g/dL (12.0-16.0); Platelet Count 106 10^3/uL (130-400)
[2024-12-07] MEDS: LIPITOR PO (18:50)
[2024-12-07 19:53] LABS: Blood Urea Nitrogen 19 mg/dl (7-17); Carbon Dioxide 24 mmol/L (22-30); Chloride 110 mmol/L (98-107); Estimated Creatinine Clearance 36 ml/min; Glucose 109 mg/dl (70-99); Sodium 138 mmol/L (135-145); eGFR 56.25
[2024-12-07] MEDS: LOW STRENGTH ASPIRIN 81 MG PO (20:04)
[2024-12-07 20:15] LABS: Glucose - Point of Care 95 mg/dl (70-99)
[2024-12-07] MEDS: ANCEF 5 IV (21:08)
[2024-12-07] MEDS: SENOKOT-S PO (21:12)
[2024-12-07] MEDS: LR 250 ML IV (21:22)
--- NOTE | 2024-12-07 21:34 | PTCARENOTE ---
Assumed care of patient at 1900. Patient found resting in bed at time of assessment. Patient is AOx4, follows commands appropriately, moves all extremities. Patient drowsy on assessment. Lung sounds are diminished throughout, respirations are
shallow, saO2 99% on 4L, CTx4: 2xmeds to one atrium and R/L pleural draining red sanguineous to one atrium. Heart sounds are audible, patient is SR on the monitor, pulses are palpable albeit somewhat weak dorsalis pedis pulses, no observable edema,
patient has no wires. Patient has hypoactive BS and indwelling urinary catheter draining clear yellow urine. Patient has sternal incision with aquacell dressing that is CDI, ABD dressing over CT wounds that is CDI, R groin puncture with 4x4 dressing
with scant amount of old drainage and L groin puncture approx with surg adhesive FOREIGN. Patient has R IJ cordis with slic, L radial [place], and L FA PIV. Patient has the following gtts: Cordis KVO, VIP KVO, Dobut@1, Levo@1, Insulin gtt. Vital signs as
follows: T-100 RR-13 P-88 ABP-111/51 CVP-8
[2024-12-07 21:53] LABS: Glucose - Point of Care 117 mg/dl (70-99)
[2024-12-07] MEDS: PACERONE 200 MG PO (22:40)
[2024-12-07] MEDS: TYLENOL 1000 MG PO (22:40)
[2024-12-07] MEDS: NEURONTIN 100 MG PO (22:40)
[2024-12-07] MEDS: ROXICODONE 5 MG PO (23:50)
[2024-12-07 23:56] LABS: Glucose - Point of Care 92 mg/dl (70-99)
[2024-12-08] VITALS (40 sets, daily range): BP systolic 77–162; BP diastolic 47–96; PULSE 90; O2SAT 96–97; BMI 22.9
--- NOTE | 2024-12-08 | PTCARENOTE ---
Patient reassessed. Patient with episodes of hypotension with low UOP gave [address] PA. Remains SR on the monitor. Call rick within reach
[2024-12-08] MEDS: LR 250 ML IV ×3 (00:55→10:53)
[2024-12-08 02:10] LABS: Glucose - Point of Care 114 mg/dl (70-99)
[2024-12-08 03:31] LABS: Mixed Venous O2 Saturation 75.8 %
[2024-12-08 03:34] LABS: Ionized Calcium 1.26 mMOL/L (1.15-1.33)
[2024-12-08 04:03] LABS: Hematocrit 29.2 % (37.0-47.0); Hemoglobin 9.9 g/dL (12.0-16.0); Mean Corp Hgb Conc. 33.9 g/dL (33.0-37.0); Mean Corpuscular Hgb 30.8 pg (27.0-31.0); Mean Platelet Volume 11.8 fL (7.4-10.4); Platelet Count 108 10^3/uL (130-400); Red Blood Cell Count 3.21 10^6/uL (4.20-5.40); Red Cell Dist. Width 13.8 % (11.5-14.5); White Blood Cell Count 23.8 10^3/uL (4.8-10.8)
[2024-12-08 04:14] LABS: Glucose - Point of Care 102 mg/dl (70-99)
[2024-12-08 04:25] LABS: Blood Urea Nitrogen 21 mg/dl (7-17); Calcium 8.6 mg/dl (8.4-10.2); Carbon Dioxide 23 mmol/L (22-30); Chloride 111 mmol/L (98-107); Estimated Creatinine Clearance 33 ml/min; Glucose 100 mg/dl (70-99); Magnesium 2.1 mg/dl (1.6-2.3); Potassium 4.3 mmol/L (3.5-5.1); Sodium 140 mmol/L (135-145); eGFR 50.17
--- NOTE | 2024-12-08 04:35 | W.PN.CT ---
Today's Communication / Plan
-
-pod #1
-no issues overnight
-mvO2 is 75.8. drips: Dobut 2, Levo 2, Insulin
-CT outputs: 2 meds 70/170, 2 pleur 105/215 in 12/24 hrs
-wean off Dobut, then deline
-got 500 LR
-d/c insulin
-continue Santana
-current meds (ASA, Plavix, Amio, Lipitor, Protonix). Hold BB while on Dobut. Eventually, consider Toprol or Coreg for EF 40%
-encourage IS, OOB
Assessment / Plan
-
-Multivessel CAD/95-99% ostial LM- s/p CABG x 4 (GEGE to LAD, GSV to OM2, GSV to RPDA, GSV to RPLB) by Dr. Mcallister on 12/07/24, pod #1
-Post-BISHNU: LVEF 40-45%, global hypokinesis w/ anterior moving less than inferior (baseline), moderate MR
-NSTEMI (peak trop 0.536)
-[place]
-LVEF 55-60% per TTE 12/02/24
-Mild MR, otherwise no significant valvular disease
-HTN
-HLD
-Prediabetes (hgb A1C 5.7)
-Former tobacco use
-MARLENY
-Acute postop blood loss anemia -1 PRBC in OR
-Acute postop thrombocytopenia
-Acute postop atelectasis
-Acute postop hypovolemia with subsequent hypervolemia
Discussed patient care with: Nursing and Care Team
Subjective
-
Date of Service: December 08, 2024
Objective Data
-
PT 21.0 Sec (11.4-14.6) H 12/07/24 13:49
INR 1.76 12/07/24 13:49
APTT 34.2 Sec (23.4-35.0) 12/07/24 13:49
Vital Signs
Vital Signs
Temp Pulse Resp BP Pulse Ox
99.2 F 86 12 92/57 99
12/08/24 01:05 12/08/24 01:00 12/08/24 01:05 12/08/24 01:00 12/08/24 01:05
CT Intake/Output/Weight
12/07/24 12/07/24 12/08/24
06:59 18:59 06:59
Intake Total 459.4 / 619.9 160.5 / 619.9
Output Total 845 / 1175 330 / 1175
Balance -385.6 / -555.1 -169.5 / -555.1
SaO2: 99
Physical Exam
-
General: Awake and AOx3
Cardiovascular: Regular rate & rhythm, No Murmurs and No Rub
Respiratory: Decreased Breath Sounds
Sternum: Stable
Incision: Clean, Dry and Intact
Extremities: No Edema (DPs dopplerable b/l)
Abdomem: soft, nontender, nondistended, + decreased bowel sounds
Data Reviewed
-
Lab Results: Results Reviewed
Medications: Active Meds Reviewed
Chest X-Ray: Report Reviewed and Image Reviewed
ECG: Report Reviewed and Image Reviewed
[2024-12-08] MEDS: ANCEF 5 IV ×2 (05:39→13:20)
--- NOTE | 2024-12-08 05:51 | PTCARENOTE ---
Patient reported feeling burning sensation in chest. BP suddenly spiked to >[address] PA at bedside. Started nitro gtt. BP stable at this time.
[2024-12-08 06:36] LABS: Glucose - Point of Care 84 mg/dl (70-99)
--- NOTE | 2024-12-08 06:39 | PTCARENOTE ---
Patient reassessed. Remains on 1mcg Levo, dobut tapered to 1mcg per CT PA. AM labs obtained. AM hygiene care provided. Assisted patient oob to chair. Patient delined. No c/o pain at this time. Call rick within reach.
[2024-12-08] MEDS: TYLENOL 1000 MG PO ×3 (06:40→21:48)
--- NOTE | 2024-12-08 07:25 | PTCARENOTE ---
Received pt from warehouse worker 2nd shift RN; pt AAOx3 and resting comfortably in chair; NSR on monitor and VSS: RIJ Cordis, Left A-line and PIV x1 all lines leveled and zeroed; Insulin, Levo and Dobutamine infusing see flow sheet for details; Lungs diminished;
CT x4 to -20 wall suction no air leak and no crepitus noted; IS 750; hypoactive bowel sounds; Santana catheter draining yellow urine; palpable pulses throughout; no edema noted; all surgical sites C/D/I; see nursing documentation for further details.
--- NOTE | 2024-12-08 07:30 | W.PN.ANS.POP ---
Anesthesia Post Operative
- Anesthesia Post Op Note
Vital Signs Stable-See Nursing Note: Yes
Airway Patent: Yes
Adequate Pain Control: Yes
Change in Mental Status: No
Current Postoperative Nausea & Vomiting: No
Anesthesia Complications: No
General Anesthetic Recall: No
Unplanned Admission: No
Post Op Hydration Adequate: Yes
- -
pt OOB in chair and VS stable awake and alert
[2024-12-08 08:10] LABS: Glucose - Point of Care 96 mg/dl (70-99)
--- NOTE | 2024-12-08 08:16 | W.PN.INTV ---
Today's Communication / Plan
Recommendations
Up OOB as tolerated
Pain control
Encourage incentive spirometer
Cardiac rehab consult
Wean down dobutamine as per CT surgery team, while trending MVO2 with goal >65�70
Wean down Levophed as tolerated while keeping MAP >65
Goal BG 110�140
Rn Critical Care services will continue to follow along while she remains in the CVICU.
Assessment
-
Assessment: 84-year-old female former tobacco smoker with a past medical history of hypertension and hyperlipidemia who presents with upper chest pain which was intermittent. Over the past week prior to arrival, pain has been more frequent and
more severe. It was not associated with strenuous activity and occurred more when under stress and typically while at work. She also has been frequently belching and that her symptoms previously had improved with Tums or Pepcid. She had started
recently taking a daily aspirin but only in the past week or so since her pain began. She saw her PCP on Thursday and told them her symptoms and she was advised to go to [facility] to have an EKG done but she declined at that time. On the day of ER
arrival she had 3 episodes of chest pain while at work and so she came to the hospital for further evaluation. Initial troponin was elevated at 0.145. Initial EKG showed diffuse ST depressions with ST elevation of aVR. In the ER she was given
aspirin, started on heparin drip and also nitroglycerin drip and was admitted to the IVU for an NSTEMI. Cardiology was consulted, and echo on 12/02 showed an LVEF of 55-60% with mild anteroseptal/inferoseptal hypokinesis with normal RV size and
function. Left heart catheterization on 12/02/2024 showed severe calcific multivessel CAD including a high-grade ostial left main stenotic lesion, with mildly elevated LV filling pressures with no aortic stenosis (LVEDP: 18 mmHg). Cardiothoracic
surgery was evaluated to assess the patient for CABG. The risks and benefits of a CABG were discussed with the patient and she has agreed to this procedure. On 12/07/2024,she underwent a CABG x 4, and during the case there was hemodynamic
instability and patient required emergent cannulation for cardiopulmonary bypass support with subsequent rapid cheondoism and maintenance of MAP. There also were no significant arrhythmias during this period of hypotension. Patient then
transferred to the CVICU once the case was finished with bilateral pleural chest tubes and mediastinal chest tubes x 2. Rn Critical Care service is now consulted for additional management/recommendations.
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
Impression:
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
#Acute anemia due to above
#Acute thrombocytopenia due to above
#Former tobacco smoker (quit 20 years ago with 27-baoa-dmiy history)
#History of hypertension
#History of hyperlipidemia
Plan:
Patient successfully extubated on 12/07/2024 and is currently on room air, breathing comfortably and saturating 95%
Maintain SpO2 >90-94%
prn nebulized bronchodilators - not currently bronchospastic
Encourage incentive spirometer use q1hr while awake
Pain control
Pulmonary artery catheter parameters will be followed
Pressors/antihypertensive/inotropes/diuretics will be provided as needed - chest
currently on dobutamine at 1 mcg/kg/min
Maintain MAP>65
Replete electrolytes with K>4, Mg>2
Monitor chest tube output (bilateral pleural chest tubes + mediastinal chest tubes x 2)
Monitor hemoglobin
Monitor platelet count and coags
Transfuse blood products as needed to maintain Hb>7g/dL, plt>50k (given post-operative status)
CT surgery managing chest tubes
Monitor blood sugar to maintain euglycemia with goal BG 110-140
Insulin drip now weaned off - continue with ISS to maintain BG at goal as above
Aspiration precautions
DVT prophylaxis
Early nutrition
Early mobilization
Critical care statement: A total of 41 minutes of critical care time was provided for this patient today. This includes management of ventilator, spontaneous breathing trial, arterial blood gases, pressors, of unstable vital signs, evaluation of the
patient at bedside, reviewing the patient's pertinent medical records including radiographs, microbiology, laboratory evaluations, and discussion with primary team and critical care nursing.
Subjective Dataa
Subjective Data
Date of Service:
Date of Service: December 08, 2024
Chief Complaint: Rn Critical Care Follow Up
Subjective:
Patient was seen today at bedside, with her brother, Ronald, and friend, Marybel, at bedside. Patient currently on room air breathing comfortably and walked around the unit today without shortness of breath or chest pain. Currently on dobutamine at 1
mcg/kg/min and Levophed at 0.5 mcg/min. Heart rate 94, BP via A-line: 162/54 and BP via NIBP: 132/65. She is saturating 95%.
Review of Systems
General: Other (Negative unless mentioned above)
Objective Data
Data Reviewed
Vital Signs / I&O / Oxygen:
Vital Signs
Temp Pulse Resp BP Pulse Ox
99.2 F 74 16 119/61 100
12/08/24 08:00 12/08/24 09:20 12/08/24 08:00 12/08/24 09:00 12/08/24 08:55
Intake and Output
12/07/24 12/08/24 12/09/24
06:59 06:59 06:59
Intake Total 780.8 / 780.8 74.2 / 74.2
Output Total 1385 / 1385 125 / 125
Balance -604.2 / -604.2 -50.8 / -50.8
SaO2 [CPAP] 100
SaO2 [SIMV] 100
SaO2 100
Nasal Cannula flow liters per 2
minute
Physical Exam
General: Respiratory Distress (negative), Comfortable, Chills (negative) and Sweats (negative)
HEENT: Normocephalic and Anicteric
Cardiovascular: S1-S2 and Peripheral Edema (negative)
Respiratory: Wheeze (negative), Rhonchi (negative), Stridor (negative), Other (Diminished breath sounds bilaterally) and Other (Coarse breath sounds heard bilaterally)
GI: Soft, Non Distended, Non Tender and Normal Bowel Sounds
Neurology: AO x 3 and Tremors (negative)
Skin: Warm, Dry, Cyanosis (negative) and Jaundice (negative)
Labs/Micro/Reports
Lab Data
12/08/24 03:18
12/08/24 03:18
Laboratory Results
12/07/24 12/07/24
13:49 17:07
PT 21.0 H
INR 1.76
APTT 34.2
pH 7.35 7.38
pCO2 40 H 38 H
pO2 127 H 148 H
HCO3 22.1 22.5
O2 Delivery Level
[2024-12-08] MEDS: BACTROBAN 2% OINTMENT 1 APPLIC NASAL ×2 (08:46→19:37)
[2024-12-08] MEDS: MAGNESIUM OXIDE 500 MG PO ×2 (08:47→19:36)
[2024-12-08] MEDS: NEURONTIN 100 MG PO ×3 (08:47→21:48)
[2024-12-08] MEDS: VITAMIN C 500 MG PO (08:47)
[2024-12-08] MEDS: LOW STRENGTH ASPIRIN 81 MG PO (08:48)
[2024-12-08] MEDS: SENOKOT-S 1 TABLET PO ×2 (08:48→19:36)
[2024-12-08] MEDS: PROTONIX 40 MG PO (08:48)
[2024-12-08] MEDS: FEOSOL 325 MG PO (08:48)
[2024-12-08] MEDS: PACERONE 200 MG PO ×3 (08:48→21:48)
[2024-12-08] MEDS: PLAVIX 75 MG PO (08:48)
[2024-12-08] MEDS: LIDOCAINE 4% PATCH 1 PATCH TOPICAL (08:50)
--- NOTE | 2024-12-08 09:00 | W.PN.CD ---
Today's Communication / Plan
-
cont. routine post-op care
Impression / Plan
-
Impression/Plan: 84-year-old female with history of hypertension and hyperlipidemia admitted with intermittent chest pains that became progressive with and abnormal troponin, consistent with NSTEMI. Cath with significant MV CAD including LM
disease, now POD1 s/p CABGx4 with LIMTA-LAD, GSV-OM2, GSV-RPDA, GSV-RPLB.
#CAD/NSTEMI
#s/p CABGx4
-Troponin peaked at 0.536.
-Echocardiogram revealed an LVEF of 55-60% with mid anteroseptal/inferoseptal hypokinesis and aortic sclerosis without stenosis.
-Coronary angiography showed severe left main stenosis, now s/p CABG 12/08/2024
-Post-BISHNU: LVEF 40-45%, global hypokinesis w/ anterior moving less than inferior (baseline), moderate MR
-Extubated, now on RA
-Cont. routine post operative care.
-Pain/chest tube management per CT surgery.
-cont. asa/plavix
-cont. amio per cts for post-op afib prevention
#HTN
-Chronic, stable.
-Restart beta blockers as hemodynamics will permit.
#HLD
-Chronic, stable.
-Total cholesterol = 188, LDL = 113, HDL = 58, Triglycerides = 88.
-Goal LDL < 55.
-Statin
Subjective/Interval History:
No acute events.
Doing well this morning, feeling well sitting in chair
DATA:
Cardiac Catheterization, 12/02/2024:
CORONARY ANGIOGRAPHY
Dominance: Right
LM: Short vessel with a calcific 95-99% stenosis ostially.
LAD: Large vessel giving rise to a small D1, moderate caliber D2, and small D3. There is a calcific 80% stenosis in the mid-vessel and otherwise mild non-obstructive disease.
LCx: Moderate caliber vessel giving rise to a small OM1, moderate caliber OM2, and small OM3. There is a 50% focal stenosis in the proximal vessel and otherwise non-obstructive disease.
RCA: Large vessel giving rise to a large caliber RPDA, small RPL1, and large RPL2. There is a tortuous segment in the mid-RCA that contains a focal 90% stenosis. There is also moderate Pereira 1,1,1 bifurcation disease at the distal RCA/RPDA/RPAV
bifurcation. There is otherwise mild non-obstructive disease.
Transthoracic Echocardiogram, 12/02/2024:
CONCLUSIONS
Left ventricular ejection fraction is 55-60%. Mid anteroseptal/inferoseptal
hypokinesis.
Normal right ventricular size and function.
Aortic sclerosis without stenosis.
No prior study available for comparison.
CT Chest, 12/03/2024:
IMPRESSION:
No acute findings in the chest.
Extensive coronary artery calcifications.
Hyperdensity within the gallbladder and visualized common bile duct which may represent vicarious excretion of contrast or biliary stones/sludge.
1.4 cm left adrenal nodule which likely represents an adenoma. If there is high clinical concern further evaluation with nonemergent MRI may be considered.
Physical Exam
Vital Signs/Labs
Vital Signs
Temp Pulse Resp BP Pulse Ox
37.3 C 85 16 109/60 99
12/08/24 08:00 12/08/24 08:05 12/08/24 08:00 12/08/24 08:00 12/08/24 08:05
12/07/24 12/08/24 12/09/24
06:59 06:59 06:59
Actual Weight 56.9 kg 58.7 kg
12/08/24 03:18
12/08/24 03:18
PT 21.0 Sec (11.4-14.6) H 12/07/24 13:49
INR 1.76 12/07/24 13:49
APTT 34.2 Sec (23.4-35.0) 12/07/24 13:49
Magnesium 2.1 mg/dl (1.6-2.3) 12/08/24 03:18
Triglycerides 88 mg/dl (10-149) 12/02/24 05:37
LDL Cholesterol, Calc 113 mg/dl 12/02/24 05:37
VLDL Cholesterol, Calc 17 mg/dl (0-30) 12/02/24 05:37
HDL Cholesterol 58 mg/dl 12/02/24 05:37
Physical Exam
Constitutional: No acute distress
Cardiovascular: Rhythm & rate is regular
Respiratory: Respiratory effort normal
Neuro/Psych: AO x 3
Data Reviewed
-
Date of Service: December 08, 2024
Medical Decision Making: Reviewed Test Results
EKG: Tracing Personally Visualized and interpreted
Echo: Tracing Personally Visualized and interpreted
X-Ray/CT/US/MRI/NUC/PET: Image Personally Visualized and interpreted
Labs: Labs Reviewed by me
[2024-12-08 10:16] LABS: Glucose - Point of Care 125 mg/dl (70-99)
--- NOTE | 2024-12-08 12:02 | PTCARENOTE ---
Assessment unchanged; NSR on monitor and VSS: pt ambulated hallways with cardiac rehab and RN; family at bedside.
--- NOTE | 2024-12-08 12:06 | CM ---
Chart reviewed. Patient OOB ambulating the halls with Cardiac Rehab. Patient is independent of ADLS, lives alone in a split level home, 0 DME. Plan is for the patient to return home vs patient's sister house with CT Transitional RN. CM to
follow
[2024-12-08 12:07] LABS: Glucose - Point of Care 108 mg/dl (70-99)
[2024-12-08] MEDS: NSS IV (13:22)
[2024-12-08 14:16] LABS: Glucose - Point of Care 76 mg/dl (70-99)
[2024-12-08 15:43] LABS: ALT (SGPT) 30 U/L (0-35); AST (SGOT) 198 U/L (14-36); Albumin 2.8 g/dl (3.5-5.0); Alkaline Phosphatase 70 U/L (38-126); Blood Urea Nitrogen 27 mg/dl (7-17); Calcium 8.4 mg/dl (8.4-10.2); Carbon Dioxide 21 mmol/L (22-30); Chloride 104 mmol/L (98-107); Estimated Creatinine Clearance 30 ml/min; Glucose 144 mg/dl (70-99); Potassium 4.3 mmol/L (3.5-5.1); Sodium 133 mmol/L (135-145); Total Bilirubin 0.8 mg/dl (0.2-1.3); Total Protein 4.9 g/dl (6.3-8.2); eGFR 45.19
[2024-12-08] MEDS: TORADOL 15 MG IV (16:31)
[2024-12-08] MEDS: LIPITOR 40 MG PO (16:32)
--- NOTE | 2024-12-08 16:50 | PTCARENOTE ---
NSR on monitor and VSS; family at bedside and assessment unchanged.
--- NOTE | 2024-12-08 20:00 | PTCARENOTE ---
Assumed care of patient at 1900. Patient is Aox4, follows commands appropriately, moves all extremities. Lung sounds are diminished, respirations are shallow, saO2 95% on RA, there are CTx4: R/L pleural to one atrium and medsx2 to one atrium. Heart
sounds are audible, patient is SR on the monitor, no edema noted, and pulses are palpable throughout. Hypoactive BS in all four quadrants there is a tijerina in place draining clear yellow urine. Patient has a sternal incision with aquacell dressing
that is CDI, R groin puncture with 4x4 dressing that is CDI, L groin puncture with 4x4 dressing that is CDI, RLE incision approx with surg adhesive ACQUISITION LEAD and LLE incision approx with surg adhesive ACQUISITION LEAD. Patient has a R IJ cordis and L FA PIV. Patient
is receiving cordis KVO and dobut@1. No c/o pain. Call rick within reach.
[2024-12-08] MEDS: ALBUMIN 5% 250 IV (21:48)
[2024-12-08 22:50] LABS: Mixed Venous O2 Saturation 61.4 %
[2024-12-09] VITALS (23 sets, daily range): BP systolic 99–130; BP diastolic 50–76; PULSE 82; O2SAT 95–98; BMI 24.1
--- NOTE | 2024-12-09 | PTCARENOTE ---
Patient reported some back discomfort around HS transferred back to bed without incident assistx1. At approx 2200 noted some intermittent low BPs and persistent low UOP. CT PA notified. Received orders for albumin infusion. MAP <65 started on levo
gtt.
[2024-12-09 04:00] LABS: Mixed Venous O2 Saturation 64.1 %
[2024-12-09 04:09] LABS: Hematocrit 23.1 % (37.0-47.0); Mean Corp Hgb Conc. 34.6 g/dL (33.0-37.0); Mean Corpuscular Hgb 31.4 pg (27.0-31.0); Mean Corpuscular Volume 90.6 fL (81.0-99.0); Mean Platelet Volume 12.1 fL (7.4-10.4); Platelet Count 98 10^3/uL (130-400); Red Blood Cell Count 2.55 10^6/uL (4.20-5.40); Red Cell Dist. Width 13.7 % (11.5-14.5); White Blood Cell Count 18.4 10^3/uL (4.8-10.8)
[2024-12-09 04:30] LABS: Blood Urea Nitrogen 33 mg/dl (7-17); Calcium 8.2 mg/dl (8.4-10.2); Carbon Dioxide 25 mmol/L (22-30); Chloride 102 mmol/L (98-107); Estimated Creatinine Clearance 30 ml/min; Glucose 129 mg/dl (70-99); Magnesium 2.2 mg/dl (1.6-2.3); Potassium 4.3 mmol/L (3.5-5.1); Sodium 132 mmol/L (135-145); eGFR 45.19
[2024-12-09] MEDS: FLEXBUMIN 50 IV ×3 (05:45→21:35)
[2024-12-09] MEDS: TYLENOL 1000 MG PO ×3 (05:45→20:17)
--- NOTE | 2024-12-09 06:14 | W.PN.CT ---
Today's Communication / Plan
-
-pod #2
-no significant issues overnight
-low UO -improved after getting 1 Albumin, started 25% Albumin x 3
-mvO2 is 64.1. Dralba: Dobut 1
-CT outputs: 2 meds 15/80, 2 pleur 60/200 in 12/24 hrs
-Hg 8.0 today (9.9 on 12/08)- follow
-Cr plateaued at 1.2 today (1.2 on 12/08, 1.0 preop)- follow
-encourage IS, OOB, ambulate
Assessment / Plan
-
-Multivessel CAD/95-99% ostial LM- s/p CABG x 4 (GEGE to LAD, GSV to OM2, GSV to RPDA, GSV to RPLB) by Dr. Mcallister on 12/07/24, pod #2
-Post-BISHNU: LVEF 40-45%, global hypokinesis w/ anterior moving less than inferior (baseline), moderate MR
-NSTEMI (peak trop 0.536)
-[place]
-LVEF 55-60% per TTE 12/02/24
-Mild MR, otherwise no significant valvular disease
-HTN
-HLD
-Prediabetes (hgb A1C 5.7)
-Former tobacco use
-MARLENY
-Acute postop blood loss anemia -1 PRBC in OR
-Acute postop thrombocytopenia
-Acute postop atelectasis
-Acute postop hypovolemia with subsequent hypervolemia
-Acute postop hyponatremia
Discussed patient care with: Nursing and Care Team
Subjective
-
Date of Service: December 09, 2024
Objective Data
-
Lab Results
12/09/24 03:29
12/09/24 03:29
PT 21.0 Sec (11.4-14.6) H 12/07/24 13:49
INR 1.76 12/07/24 13:49
APTT 34.2 Sec (23.4-35.0) 12/07/24 13:49
Vital Signs
Vital Signs
Temp Pulse Resp BP Pulse Ox
99.8 F 77 20 123/64 94
12/09/24 06:04 12/09/24 06:00 12/09/24 06:04 12/09/24 06:00 12/09/24 06:04
CT Intake/Output/Weight
12/08/24 12/08/24 12/09/24
06:59 18:59 06:59
Intake Total 321.4 / 780.8 658.0 / 804.5 146.5 / 804.5
Output Total 540 / 1385 435 / 860 425 / 860
Balance -218.6 / -604.2 223.0 / -55.5 -278.5 / -55.5
SaO2: 94
Physical Exam
-
General: Awake and AOx3
Cardiovascular: Regular rate & rhythm, No Murmurs and No Rub
Respiratory: Decreased Breath Sounds
Sternum: Stable
Incision: Clean, Dry and Intact
Extremities: No Edema
Abdomen: soft, nontender, nondistended, + bowel sounds
Data Reviewed
-
Lab Results: Results Reviewed
Medications: Active Meds Reviewed
Chest X-Ray: Report Reviewed and Image Reviewed
ECG: Report Reviewed and Image Reviewed
--- NOTE | 2024-12-09 06:30 | PTCARENOTE ---
Patient reassessed. VSS. No c/o pain. AM hygiene care provided. OOB to chair without incident. Administered flexbumin 50cc. Off levo on dobut @1mcg at this point.
[2024-12-09] MEDS: LIDOCAINE 4% PATCH 1 PATCH TOPICAL (08:17)
[2024-12-09] MEDS: BACTROBAN 2% OINTMENT 1 APPLIC NASAL ×2 (08:17→20:18)
[2024-12-09] MEDS: MAGNESIUM OXIDE 500 MG PO ×2 (08:18→20:17)
[2024-12-09] MEDS: VITAMIN C 500 MG PO (08:18)
[2024-12-09] MEDS: PACERONE 200 MG PO ×3 (08:18→20:16)
[2024-12-09] MEDS: LOW STRENGTH ASPIRIN 81 MG PO (08:18)
[2024-12-09] MEDS: LASIX 40 MG IV ×2 (08:18→17:14)
[2024-12-09] MEDS: FEOSOL 325 MG PO (08:18)
[2024-12-09] MEDS: SENOKOT-S 1 TABLET PO ×2 (08:18→20:16)
[2024-12-09] MEDS: NEURONTIN 100 MG PO ×3 (08:18→20:17)
[2024-12-09] MEDS: PLAVIX 75 MG PO (08:18)
[2024-12-09] MEDS: PROTONIX 40 MG PO (08:18)
--- NOTE | 2024-12-09 08:25 | W.PN.INTV ---
Today's Communication / Plan
Recommendations
Up OOB as tolerated
Pain control
Encourage incentive spirometer
Cardiac rehab consult
Wean down dobutamine as per CT surgery team, while trending MVO2 with goal >60
Goal MAP>65
Goal BG 110�140
Patient stable and going to be downgraded today to CVICU�telemetry status once dobutamine weaned off. No additional recommendations at this time. Technical Solutions Director/Pulmonary service will now sign off. Please reconsult if there are any additional
questions/concerns, or if patient's respiratory status deteriorates.
Assessment
-
Assessment: 84-year-old female former tobacco smoker with a past medical history of hypertension and hyperlipidemia who presents with upper chest pain which was intermittent. Over the past week prior to arrival, pain has been more frequent and
more severe. It was not associated with strenuous activity and occurred more when under stress and typically while at work. She also has been frequently belching and that her symptoms previously had improved with Tums or Pepcid. She had started
recently taking a daily aspirin but only in the past week or so since her pain began. She saw her PCP on Thursday and told them her symptoms and she was advised to go to [facility] to have an EKG done but she declined at that time. On the day of ER
arrival she had 3 episodes of chest pain while at work and so she came to the hospital for further evaluation. Initial troponin was elevated at 0.145. Initial EKG showed diffuse ST depressions with ST elevation of aVR. In the ER she was given
aspirin, started on heparin drip and also nitroglycerin drip and was admitted to the IVU for an NSTEMI. Cardiology was consulted, and echo on 12/02 showed an LVEF of 55-60% with mild anteroseptal/inferoseptal hypokinesis with normal RV size and
function. Left heart catheterization on 12/02/2024 showed severe calcific multivessel CAD including a high-grade ostial left main stenotic lesion, with mildly elevated LV filling pressures with no aortic stenosis (LVEDP: 18 mmHg). Cardiothoracic
surgery was evaluated to assess the patient for CABG. The risks and benefits of a CABG were discussed with the patient and she has agreed to this procedure. On 12/07/2024,she underwent a CABG x 4, and during the case there was hemodynamic
instability and patient required emergent cannulation for cardiopulmonary bypass support with subsequent rapid orthodoxy and maintenance of MAP. There also were no significant arrhythmias during this period of hypotension. Patient then
transferred to the CVICU once the case was finished with bilateral pleural chest tubes and mediastinal chest tubes x 2. Technical Solutions Director service is now consulted for additional management/recommendations.
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
Impression:
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
#Acute anemia due to above
#Acute thrombocytopenia due to above
#Former tobacco smoker (quit 20 years ago with 39-saih-flcv history)
#History of hypertension
#History of hyperlipidemia
Plan:
Patient successfully extubated on 12/07/2024 and is currently on room air, breathing comfortably and saturating 95%
Maintain SpO2 >90-94%
prn nebulized bronchodilators - not currently bronchospastic
Encourage incentive spirometer use q1hr while awake
Pain control
Pressors/antihypertensive/inotropes/diuretics will be provided as needed
currently on dobutamine at 0.5 mcg/kg/min ---> plan to stop this later today
Maintain MAP>65
Replete electrolytes with K>4, Mg>2
All chest tubes to be removed today
Monitor hemoglobin
Monitor platelet count and coags
Transfuse blood products as needed to maintain Hb>7g/dL, plt>50k (given post-operative status)
Monitor blood sugar to maintain euglycemia with goal BG 110-140
Insulin drip weaned off - continue with ISS to maintain BG at goal as above
Aspiration precautions
DVT prophylaxis
Early nutrition
Early mobilization
Patient stable and going to be downgraded today to CVICU�telemetry status. No additional recommendations at this time. Technical Solutions Director/Pulmonary service will now sign off. Thank you for allowing us to be involved in the care of this patient. Please
reconsult if there are any additional questions/concerns, or if patient's respiratory status deteriorates.
Total time spent today was 57 minutes for this encounter. Time includes reviewing laboratory test/imaging results, reviewing pertinent medical records, obtaining and reviewing medical history, performing an appropriate exam, ordering medications,
tests and procedures. Time also includes documentation of this encounter, coordinating patient care and communicating with other healthcare professionals. Total time does not include separately billed tests performed on this date of service.
Subjective Dataa
Subjective Data
Date of Service:
Date of Service: December 09, 2024
Chief Complaint: Technical Solutions Director Follow Up
Subjective:
Patient seen and evaluated today at bedside. Patient walked today in the hallway and felt well. Currently on dobutamine at 0.5 mcg/kg/min. Heart rate 87 and BP 108/50. She denies chest pain, PATRICK, nausea, fevers or chills.
Review of Systems
General: Other (Negative unless mentioned above)
Objective Data
Data Reviewed
Vital Signs / I&O / Oxygen:
Vital Signs
Temp Pulse Resp BP Pulse Ox
99.2 F 83 18 129/60 95
12/09/24 08:00 12/09/24 09:15 12/09/24 08:00 12/09/24 09:00 12/09/24 08:30
Intake and Output
12/08/24 12/09/24 12/10/24
06:59 06:59 06:59
Intake Total 780.8 / 780.8 804.5 / 816.1 23.2 / 23.2
Output Total 1385 / 1385 860 / 870 10
Balance -604.2 / -604.2 -55.5 / -53.9 13.2 / 13.2
SaO2 [CPAP] 100
SaO2 [SIMV] 100
SaO2 95
Nasal Cannula flow liters per 2
minute
Physical Exam
General: Respiratory Distress (negative), Comfortable, Chills (negative) and Sweats (negative)
HEENT: Normocephalic and Anicteric
Cardiovascular: S1-S2 and Peripheral Edema (negative)
Respiratory: Clear, Wheeze (negative), Crackles (negative), Rhonchi (negative) and Stridor (negative)
GI: Soft, Non Distended, Non Tender and Normal Bowel Sounds
Neurology: AO x 3 and Tremors (negative)
Skin: Warm, Dry, Cyanosis (negative) and Jaundice (negative)
Labs/Micro/Reports
Lab Data
12/09/24 03:29
12/09/24 03:29
--- NOTE | 2024-12-09 08:30 | PTCARENOTE ---
Assumed care of patient at 0700. Pt is awake, alert, and oriented. Pt with no complaints of pain. Pt remains SR with HR 80's. BP 107/71 MAP 85. Pulse oximetry 95% on room air. Mediastinal chest tubes x2 and left/right pleural chest tubes in place,
no sign of air leak or crepitus. Pt tolerating PO diet. Santana catheter remains in place. Midsternal incision with surgical dressing in place. Bilateral leg incisions approximated and FOREIGN. Right groin puncture dressing CDI. 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
Right IJ cordis in place with KVO. Left radial [place] intact. Dobutamine decreased from 1mcg/kg/min to 0.5mcg/kg/min. Pt currently OOB in chair with call rick within reach.
--- NOTE | 2024-12-09 11:27 | CM ---
Chart reviewed. Patient's brother at bedside. Patient is independent of ADLS, lives alone in a split level home, 0 DME. Plan is for the patient to o to her sisters house when medically stable for discharge. [address] [place]
[id number]. [phone]. Alia. Plan is for the patient to return to her sisters house with CT Transitional RN. CM to follow
--- NOTE | 2024-12-09 11:58 | PTCARENOTE ---
40mg IV Lasix administered this AM, improved urine out. Pt ambulated in hallway with cardiac rehab, tolerated well. Mediastinal chest x2 and left right pleural chest tubes d/c'd per order. Pt remains SR with HR 80's. BP 108/58 MAP 72. Pulse oximetry
95% on room air. No complaints of pain at this time.
[2024-12-09] MEDS: NSS 500 IV (13:58)
--- NOTE | 2024-12-09 15:36 | W.PN.CD ---
Addendum entered and electronically signed by Han Smith MD 12/09/24 17:13:
I saw and examined the patient.
The [employer]'s note was reviewed and I agree with the note.
Patient is in no distress sitting in a chair. Off pressor. Remains in sinus rhythm.
Continue to monitor postop anemia. Most recent hemoglobin 8.0.
Original Note:
Today's Communication / Plan
-
Follow telemetry
Post op mgmt per CT Surgery
Impression / Plan
-
Impression/Plan: 84-year-old female with history of hypertension and hyperlipidemia admitted with intermittent chest pains that became progressive with and abnormal troponin, consistent with NSTEMI. Cath with significant MV CAD including LM
disease, now POD1 s/p CABGx4 with LIMTA-LAD, GSV-OM2, GSV-RPDA, GSV-RPLB.
#CAD/NSTEMI
#s/p CABGx4
-Troponin peaked at 0.536.
-Echocardiogram revealed an LVEF of 55-60% with mid anteroseptal/inferoseptal hypokinesis and aortic sclerosis without stenosis.
-Coronary angiography showed severe left main stenosis, now s/p CABG 12/08/2024
-Post-BISHNU: LVEF 40-45%, global hypokinesis w/ anterior moving less than inferior (baseline), moderate MR
-Cont. routine post operative care.
-Pain/chest tube management per CT surgery.
-Cont. ASA/Plavix
-Cont. post operative amiodarone
#HTN
-Chronic, stable.
-Dobutamine off today
-Restart beta blockers as hemodynamics will permit.
#HLD
-Chronic, stable.
-Total cholesterol = 188, LDL = 113, HDL = 58, Triglycerides = 88.
-Goal LDL < 55.
-Statin
#Renal insufficiency
-Weight ~57kg on admission
-No significant hypotension, now off dobutamine
Subjective/Interval History:
No acute events.
Feeling well sitting in chair.
DATA:
Cardiac Catheterization, 12/02/2024:
CORONARY ANGIOGRAPHY
Dominance: Right
LM: Short vessel with a calcific 95-99% stenosis ostially.
LAD: Large vessel giving rise to a small D1, moderate caliber D2, and small D3. There is a calcific 80% stenosis in the mid-vessel and otherwise mild non-obstructive disease.
LCx: Moderate caliber vessel giving rise to a small OM1, moderate caliber OM2, and small OM3. There is a 50% focal stenosis in the proximal vessel and otherwise non-obstructive disease.
RCA: Large vessel giving rise to a large caliber RPDA, small RPL1, and large RPL2. There is a tortuous segment in the mid-RCA that contains a focal 90% stenosis. There is also moderate Pereira 1,1,1 bifurcation disease at the distal RCA/RPDA/RPAV
bifurcation. There is otherwise mild non-obstructive disease.
Transthoracic Echocardiogram, 12/02/2024:
CONCLUSIONS
Left ventricular ejection fraction is 55-60%. Mid anteroseptal/inferoseptal
hypokinesis.
Normal right ventricular size and function.
Aortic sclerosis without stenosis.
No prior study available for comparison.
CT Chest, 12/03/2024:
IMPRESSION:
No acute findings in the chest.
Extensive coronary artery calcifications.
Hyperdensity within the gallbladder and visualized common bile duct which may represent vicarious excretion of contrast or biliary stones/sludge.
1.4 cm left adrenal nodule which likely represents an adenoma. If there is high clinical concern further evaluation with nonemergent MRI may be considered.
Physical Exam
Vital Signs/Labs
Vital Signs
Temp Pulse Resp BP Pulse Ox
99.8 F 75 18 119/71 93
12/09/24 11:29 12/09/24 15:00 12/09/24 11:29 12/09/24 15:00 12/09/24 14:45
12/08/24 12/09/24 12/10/24
06:59 06:59 06:59
Actual Weight 58.7 kg 61.7 kg
12/09/24 03:29
12/09/24 03:29
PT 21.0 Sec (11.4-14.6) H 12/07/24 13:49
INR 1.76 12/07/24 13:49
APTT 34.2 Sec (23.4-35.0) 12/07/24 13:49
Magnesium 2.2 mg/dl (1.6-2.3) 12/09/24 03:29
Triglycerides 88 mg/dl (10-149) 12/02/24 05:37
LDL Cholesterol, Calc 113 mg/dl 12/02/24 05:37
VLDL Cholesterol, Calc 17 mg/dl (0-30) 12/02/24 05:37
HDL Cholesterol 58 mg/dl 12/02/24 05:37
Physical Exam
Constitutional: No acute distress and Comfortable
EENT: Anicteric and Moist mucous membranes
Cardiovascular: Rhythm & rate is regular, Pedal edema is absent and S1S2 is normal
Respiratory: Respiratory effort normal and Lungs clear to auscul.
GI: Soft, Distention absent and Non tender
Neuro/Psych: AO x 3
Other: Skin (warm and dry)
Data Reviewed
-
Date of Service: December 09, 2024
--- NOTE | 2024-12-09 16:00 | PTCARENOTE ---
Ave d/c'd per order. Santana catheter d/c'd, pt due to void by 1999. Dobutamine gtt d/c'd per order at 1500. Pt remains SR with HR 80's. BP 129/66 MAP 85. Pulse oximetry 95% on room air. No complaints of pain.
[2024-12-09] MEDS: LIPITOR 40 MG PO (17:13)
--- NOTE | 2024-12-09 19:00 | PTCARENOTE ---
assumed care of patient @ 1900. received pt laying in bed, Aox3. VSS on RA. SR on tele, +pulses trace edma. lungs clear on room air satting high 90s. Tolerating diet. Voided adequate clear yellow urine in hat at change of shift. SVG sites FOREIGN CDI,
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 R IJ cordis with kvo, l forearm PIV both patent. pt resting in bed comfortably with call rick within reach .
--- NOTE | 2024-12-09 19:03 | PTCARENOTE ---
Pt voided only 50mL of urine made it into measuring hat, remainder of urine was in toilet. Pt states she feels she voided a large amount. Post void bladder scan 160mL.
[2024-12-10] VITALS (10 sets, daily range): BP systolic 93–134; BP diastolic 52–77; PULSE 73; O2SAT 96–98; BMI 23.8
--- NOTE | 2024-12-10 01:34 | PTCARENOTE ---
pt resting comfortably in bed, no change in assesment .
[2024-12-10 02:41] LABS: Hemoglobin 7.6 g/dL (12.0-16.0); Mean Corp Hgb Conc. 34.5 g/dL (33.0-37.0); Mean Corpuscular Volume 89.8 fL (81.0-99.0); Mean Platelet Volume 12.2 fL (7.4-10.4); Platelet Count 107 10^3/uL (130-400); Red Blood Cell Count 2.45 10^6/uL (4.20-5.40); Red Cell Dist. Width 13.5 % (11.5-14.5); White Blood Cell Count 16.2 10^3/uL (4.8-10.8)
[2024-12-10 03:26] LABS: Blood Urea Nitrogen 37 mg/dl (7-17); Calcium 7.9 mg/dl (8.4-10.2); Carbon Dioxide 29 mmol/L (22-30); Chloride 100 mmol/L (98-107); Estimated Creatinine Clearance 33 ml/min; Glucose 111 mg/dl (70-99); Magnesium 2.2 mg/dl (1.6-2.3); Potassium 3.4 mmol/L (3.5-5.1); Sodium 134 mmol/L (135-145); eGFR 50.17
[2024-12-10] MEDS: CALCIUM GLUCONATE 100 IV (04:22)
[2024-12-10] MEDS: KCL 40 MEQ PO ×3 (04:22→20:58)
--- NOTE | 2024-12-10 04:31 | W.PN.CT ---
Today's Communication / Plan
-
Plan:
-No major issues overnight. Hemodynamically and neurologically intact
-Weaned of dobutamine gtt yesterday, 12/09. Currently off all drips
-Has been hypotensive postop which has improved. Tolerated diuresis Diuresis yesterday. Will start Toprol XL 12.5 mg BID today
-H/h noted to be 7.6/22 this AM, was 8.0/23.1 yesterday. Partly hemodilutional from 25% albumin x3 received yesterday. Will cont. diuresis today, and likely transfuse if symptomatic
-Hyponatremia is improving, 134, up from 132 yesterday. Cont. diuresis and fluid restriction
-Monitor cr of 1.1, was 1.2 yesterday, preop 0.9-1.2
-Replete K, 3.4
-D/C cordis
-No temporary pacer wires
-Encourage use of IS
-OOB into chair
-Ambulate
-Home in 1-2 days
Assessment / Plan
-
-Multivessel CAD/95-99% ostial LM- s/p CABG x 4 (GEGE to LAD, GSV to OM2, GSV to RPDA, GSV to RPLB) by Dr. Mcallister on 12/07/24, pod #3
-Post-BISHNU: LVEF 40-45%, global hypokinesis w/ anterior moving less than inferior (baseline), moderate MR
-NSTEMI (peak trop 0.536)
-[place]
-LVEF 55-60% per TTE 12/02/24
-Mild MR, otherwise no significant valvular disease
-HTN
-HLD
-Prediabetes (hgb A1C 5.7)
-Former tobacco use
-MARLENY
-Acute postop blood loss anemia -1 PRBC in OR
-Acute postop thrombocytopenia
-Acute postop atelectasis
-Acute postop hypovolemia with subsequent hypervolemia
-Acute postop hyponatremia
Discussed patient care with: Cardiology, Nursing, Respiratory Therapy, Pharmacy and Care Team
Subjective
-
Date of Service: December 10, 2024
Pt c/o mild incisional pain, otherwise feels well
Objective Data
-
Lab Results
12/10/24 02:17
12/10/24 02:17
PT 21.0 Sec (11.4-14.6) H 12/07/24 13:49
INR 1.76 12/07/24 13:49
APTT 34.2 Sec (23.4-35.0) 12/07/24 13:49
Vital Signs
Vital Signs
Temp Pulse Resp BP Pulse Ox
98.6 F 74 16 123/66 95
12/09/24 20:03 12/10/24 01:30 12/10/24 00:00 12/10/24 00:16 12/10/24 00:00
CT Intake/Output/Weight
12/09/24 12/09/24 12/10/24
06:59 18:59 06:59
Intake Total 146.5 / 816.1 138.0 / 178.0 40 / 178.0
Output Total 425 / 870 1035 / 1885 850 / 1885
Balance -278.5 / -53.9 -897.0 / -1707.0 -810 / -1707.0
SaO2: 95 (RA)
Physical Exam
-
General: Awake, Oriented and AOx3
Cardiovascular: Regular rate & rhythm, No Murmurs, No Rub and No Gallop
Respiratory: Decreased Breath Sounds (at bases, otherwise clear)
Sternum: Stable
Incision: Clean, Dry, Intact and Dressing Intact
Extremities: Other (+trace edema)
Data Reviewed
-
Lab Results: Results Reviewed
Medications: Active Meds Reviewed
Chest X-Ray: Report Reviewed and Image Reviewed
ECG: Report Reviewed and Image Reviewed
[2024-12-10] MEDS: PACERONE 200 MG PO ×3 (08:16→20:57)
[2024-12-10] MEDS: LIDOCAINE 4% PATCH 1 PATCH TOPICAL (08:16)
[2024-12-10] MEDS: LASIX 40 MG IV ×2 (08:16→16:21)
[2024-12-10] MEDS: MAGNESIUM OXIDE 500 MG PO ×2 (08:16→20:57)
[2024-12-10] MEDS: NEURONTIN 100 MG PO ×3 (08:17→20:57)
[2024-12-10] MEDS: TOPROL XL 12.5 MG PO (08:17)
[2024-12-10] MEDS: LOW STRENGTH ASPIRIN 81 MG PO (08:17)
[2024-12-10] MEDS: VITAMIN C 500 MG PO (08:17)
[2024-12-10] MEDS: FEOSOL 325 MG PO (08:17)
[2024-12-10] MEDS: TYLENOL 1000 MG PO ×3 (08:17→20:57)
[2024-12-10] MEDS: PLAVIX 75 MG PO (08:17)
[2024-12-10] MEDS: PROTONIX 40 MG PO (08:17)
[2024-12-10] MEDS: NSS IV (08:17)
[2024-12-10] MEDS: SENOKOT-S PO (08:18)
[2024-12-10] MEDS: BACTROBAN 2% OINTMENT 1 APPLIC NASAL ×2 (08:18→20:58)
--- NOTE | 2024-12-10 09:28 | PTCARENOTE ---
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 Christian x 3 . SR on monitor. Room air. Surgical sites well approximated. Pulses palpable. Plan for day discussed
--- NOTE | 2024-12-10 15:02 | W.PN.CD ---
Today's Communication / Plan
-
Remains in sinus rhythm. Feeling well sitting in chair today
Hemoglobin 7.6 this morning. Decisions regarding transfusion of PRBCs being directed by CT surgery
Impression / Plan
-
Impression/Plan: 84-year-old female with history of hypertension and hyperlipidemia admitted with intermittent chest pains that became progressive with and abnormal troponin, consistent with NSTEMI. Cath with significant MV CAD including LM
disease, now POD1 s/p CABGx4 with LIMTA-LAD, GSV-OM2, GSV-RPDA, GSV-RPLB.
#CAD/NSTEMI
#s/p CABGx4
-Troponin peaked at 0.536.
-Echocardiogram revealed an LVEF of 55-60% with mid anteroseptal/inferoseptal hypokinesis and aortic sclerosis without stenosis.
-Coronary angiography showed severe left main stenosis, now s/p CABG 12/08/2024
-Post-BISHNU: LVEF 40-45%, global hypokinesis w/ anterior moving less than inferior (baseline), moderate MR
-Cont. routine post operative care.
-Cont. ASA/Plavix
# Postoperative anemia. Hemoglobin 7.6. Decisions regarding PRBCs being directed by CT surgery
#HTN
-Chronic, stable.
-Dobutamine off today
-Restart beta blockers as hemodynamics will permit.
#HLD
-Chronic, stable.
-Total cholesterol = 188, LDL = 113, HDL = 58, Triglycerides = 88.
-Goal LDL < 55.
-Statin
#Renal insufficiency
-Weight ~57kg on admission
-No significant hypotension, now off dobutamine
Subjective/Interval History:
No acute events.
Feeling well sitting in chair.
DATA:
Cardiac Catheterization, 12/02/2024:
CORONARY ANGIOGRAPHY
Dominance: Right
LM: Short vessel with a calcific 95-99% stenosis ostially.
LAD: Large vessel giving rise to a small D1, moderate caliber D2, and small D3. There is a calcific 80% stenosis in the mid-vessel and otherwise mild non-obstructive disease.
LCx: Moderate caliber vessel giving rise to a small OM1, moderate caliber OM2, and small OM3. There is a 50% focal stenosis in the proximal vessel and otherwise non-obstructive disease.
RCA: Large vessel giving rise to a large caliber RPDA, small RPL1, and large RPL2. There is a tortuous segment in the mid-RCA that contains a focal 90% stenosis. There is also moderate Pereira 1,1,1 bifurcation disease at the distal RCA/RPDA/RPAV
bifurcation. There is otherwise mild non-obstructive disease.
Transthoracic Echocardiogram, 12/02/2024:
CONCLUSIONS
Left ventricular ejection fraction is 55-60%. Mid anteroseptal/inferoseptal
hypokinesis.
Normal right ventricular size and function.
Aortic sclerosis without stenosis.
No prior study available for comparison.
CT Chest, 12/03/2024:
IMPRESSION:
No acute findings in the chest.
Extensive coronary artery calcifications.
Hyperdensity within the gallbladder and visualized common bile duct which may represent vicarious excretion of contrast or biliary stones/sludge.
1.4 cm left adrenal nodule which likely represents an adenoma. If there is high clinical concern further evaluation with nonemergent MRI may be considered.
Physical Exam
Vital Signs/Labs
Vital Signs
Temp Pulse Resp BP Pulse Ox
98.7 F 72 20 102/59 95
12/10/24 12:35 12/10/24 12:35 12/10/24 12:35 12/10/24 11:45 12/10/24 12:35
12/09/24 12/10/24 12/11/24
06:59 06:59 06:59
Actual Weight 61.7 kg 61 kg
12/10/24 02:17
12/10/24 02:17
PT 21.0 Sec (11.4-14.6) H 12/07/24 13:49
INR 1.76 12/07/24 13:49
APTT 34.2 Sec (23.4-35.0) 12/07/24 13:49
Magnesium 2.2 mg/dl (1.6-2.3) 12/10/24 02:17
Triglycerides 88 mg/dl (10-149) 12/02/24 05:37
LDL Cholesterol, Calc 113 mg/dl 12/02/24 05:37
VLDL Cholesterol, Calc 17 mg/dl (0-30) 12/02/24 05:37
HDL Cholesterol 58 mg/dl 12/02/24 05:37
Physical Exam
Constitutional: No acute distress
Cardiovascular: Rhythm & rate is regular
Respiratory: Wheeze Absent and Rhonchi Absent
GI: Soft
Data Reviewed
-
Date of Service: December 10, 2024
Medical Decision Making: Reviewed Test Results
Medical Tests (PFT, Pathology etc): Report Reviewed by me
Labs: Labs Reviewed by me
[2024-12-10] MEDS: LIPITOR 40 MG PO (16:21)
--- NOTE | 2024-12-10 16:59 | PTCARENOTE ---
Rt IJ cordis removed, manual pressure applied x 10 minutes. Hemostasis achieved. VSS, denies complaint. assessment otherwise unchanged from prior
--- NOTE | 2024-12-10 19:00 | PTCARENOTE ---
assumed care of patient @ 1900. received pt laying in bed, Aox3. VSS on RA. SR on tele, +pulses trace edma. lungs clear on room air satting high 90s. Tolerating diet. Voiding in toilet. SVG sites FOREIGN CDI, B/l groins FOREIGN CDI, sternal dressing CDI.
PIV patent.. pt resting in bed comfortably with call rick within reach .
[2024-12-10] MEDS: SENOKOT-S 1 TABLET PO (20:57)
[2024-12-10] MEDS: MELATONIN 5 MG PO (22:51)
--- NOTE | 2024-12-11 03:23 | W.PN.CT ---
Today's Communication / Plan
-
Plan:
-No major issues overnight. Hemodynamically and neurologically intact
-Currently off all drips
-Has been hypotensive postop which has improved. Tolerated diuresis and initiation of Toprol XL 12.5 mg Qdaily
-H/h slightly up 7.9/23 from 7.6/22 following diuresis. Cont. diuresis, denies lightheadedness/dizziness
-Postop thrombocytopenia has resolved, 98-> 107->145K
-Hyponatremia has resolved,135 was 134 yesterday. Check wt today, Cont. but decrease diuresis today, fluid restriction
-Creatinine appears to be at baseline @ 1.1, preop 0.9-1.2
-F/U 2-view cxr
-No temporary pacer wires
-Encourage use of IS
-OOB into chair
-Ambulate
-Home today (going to stay @ sister's house)
Assessment / Plan
-
-Multivessel CAD/95-99% ostial LM- s/p CABG x 4 (GEGE to LAD, GSV to OM2, GSV to RPDA, GSV to RPLB) by Dr. Mcallister on 12/07/24, pod #4
-Post-BISHNU: LVEF 40-45%, global hypokinesis w/ anterior moving less than inferior (baseline), moderate MR
-NSTEMI (peak trop 0.536)
-[place]
-LVEF 55-60% per TTE 12/02/24
-Mild MR, otherwise no significant valvular disease
-HTN
-HLD
-Prediabetes (hgb A1C 5.7)
-Former tobacco use
-MARLENY/Renal insufficiency
-Acute postop blood loss anemia -1 PRBC in OR
-Acute postop thrombocytopenia
-Acute postop atelectasis
-Acute postop hypovolemia with subsequent hypervolemia
-Acute postop hyponatremia
Discussed patient care with: Cardiology, Nursing, Respiratory Therapy, Pharmacy and Care Team
Subjective
-
Date of Service: December 11, 2024
Pt c/o incisional pain, otherwise feels well. Denies lightheadedness/dizziness
Objective Data
-
PT 21.0 Sec (11.4-14.6) H 12/07/24 13:49
INR 1.76 12/07/24 13:49
APTT 34.2 Sec (23.4-35.0) 12/07/24 13:49
Vital Signs
Vital Signs
Temp Pulse Resp BP Pulse Ox
97.7 F 67 16 101/55 95
12/10/24 23:12 12/10/24 23:30 12/10/24 23:12 12/10/24 23:10 12/10/24 23:12
CT Intake/Output/Weight
12/10/24 12/10/24 12/11/24
06:59 18:59 06:59
Intake Total 40 / 178.0 1380 / 1380
Output Total 850 / 1885 3200 / 3700 500 / 3700
Balance -810 / -1707.0 -1820 / -2320 -500 / -2320
SaO2: 95 (RA)
Physical Exam
-
General: Awake, Oriented and AOx3
Cardiovascular: Regular rate & rhythm, No Rub and No Gallop
Respiratory: Decreased Breath Sounds (at bases, otherwise clear)
Sternum: Stable
Incision: Clean, Dry, Intact and Dressing Intact
Extremities: Other (+trace edema)
Data Reviewed
-
Lab Results: Results Reviewed
Medications: Active Meds Reviewed
Chest X-Ray: Report Reviewed and Image Reviewed
ECG: Report Reviewed and Image Reviewed
[2024-12-11 04:48] VITALS: BP 102/53
[2024-12-11 04:50] LABS: Ionized Calcium 1.15 mMOL/L (1.15-1.33)
[2024-12-11 05:01] LABS: Hemoglobin 7.9 g/dL (12.0-16.0); Mean Corp Hgb Conc. 34.3 g/dL (33.0-37.0); Mean Corpuscular Volume 90.2 fL (81.0-99.0); Mean Platelet Volume 11.5 fL (7.4-10.4); Platelet Count 145 10^3/uL (130-400); Red Blood Cell Count 2.55 10^6/uL (4.20-5.40); Red Cell Dist. Width 13.6 % (11.5-14.5); White Blood Cell Count 14.2 10^3/uL (4.8-10.8)
[2024-12-11 05:17] LABS: Blood Urea Nitrogen 36 mg/dl (7-17); Calcium 8.3 mg/dl (8.4-10.2); Carbon Dioxide 28 mmol/L (22-30); Chloride 102 mmol/L (98-107); Estimated Creatinine Clearance 33 ml/min; Glucose 111 mg/dl (70-99); Magnesium 2.2 mg/dl (1.6-2.3); Potassium 4.3 mmol/L (3.5-5.1); Sodium 135 mmol/L (135-145); eGFR 50.17
[2024-12-11] MEDS: CALCIUM GLUCONATE 130 MG IV (05:20)
[2024-12-11] MEDS: SENOKOT-S PO (07:17)
[2024-12-11] MEDS: TYLENOL PO (07:17)
[2024-12-11] MEDS: NSS IV (07:17)
[2024-12-11 07:38] VITALS: BP 119/70
[2024-12-11 07:42] VITALS: BMI 23.4
--- NOTE | 2024-12-11 08:15 | PTCARENOTE ---
Assumed care of patient from shift production supervisor RN AAO x 3, assist x 1 oob to bathroom , morning ADLs completed by patient. SR on monitor. Room air 95%, denies cough or sputum, using acapella independently. Abdomen benign, voiding w/o issue. Surgical
sites c,d,i. Pulses palpable. Trace pedal edema appreciated. Plan for day discussed.
[2024-12-11] MEDS: BACTROBAN 2% OINTMENT 1 APPLIC NASAL (08:31)
[2024-12-11] MEDS: NEURONTIN 100 MG PO (08:31)
[2024-12-11] MEDS: MAGNESIUM OXIDE 500 MG PO (08:31)
[2024-12-11] MEDS: KCL 40 MEQ PO (08:31)
[2024-12-11] MEDS: TOPROL XL 12.5 MG PO (08:31)
[2024-12-11] MEDS: LOW STRENGTH ASPIRIN 81 MG PO (08:31)
[2024-12-11] MEDS: FEOSOL 325 MG PO (08:31)
[2024-12-11] MEDS: PROTONIX 40 MG PO (08:31)
[2024-12-11] MEDS: PACERONE 200 MG PO (08:32)
[2024-12-11] MEDS: LIDOCAINE 4% PATCH TOPICAL (08:33)
[2024-12-11] MEDS: PLAVIX 75 MG PO (08:33)
[2024-12-11] MEDS: LASIX 40 MG IV (08:33)
[2024-12-11] MEDS: VITAMIN C 500 MG PO (08:33)
[2024-12-11 10:31] VITALS: BP 115/53
--- NOTE | 2024-12-11 12:56 | PTCARENOTE ---
Patient for discharge. 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 Patient showered, all dressings removed, Telemetry pack removed, PIV d/c'd. Patient ambulatory in room without assistance. Discharge instructions reviewed with patient and
family. Prescriptions and medication next dose reviewed. Patient verbalized understanding. Patient discharged via wheelchair, transferred to car without issues.
== END 2024-12-11 12:59 | disposition home or self-care (01) | DRG 234 ==
LOC: CVICU 20:09
PROVIDERS: Clinical Nurse Specialist Acute Care; Family Medicine; Internal Medicine; Nurse Practitioner; Physician Assistant Medical; Student in an Organized Health Care Education/Training Program; ADMITTING PHYSICIAN Hospitalist; ATTENDING PHYSICIAN Thoracic Surgery (Cardiothoracic Vascular Surgery); CONSULT PHYSICIAN Internal Medicine Cardiovascular Disease; EMERGENCY PHYSICIAN Student in an Organized Health Care Education/Training Program; FAMILY PHYSICIAN Family Medicine; OTHER PHYSICIAN Internal Medicine Critical Care Medicine
PROC: 4A023N7 Measurement of Cardiac Sampling and Pressure, Left Heart, Percutaneous Approach (ICD-10-PCS; 2024-12-02)
PROC: B2111ZZ Fluoroscopy of Multiple Coronary Arteries using Low Osmolar Contrast (ICD-10-PCS; 2024-12-02)
PROC: B2151ZZ Fluoroscopy of Left Heart using Low Osmolar Contrast (ICD-10-PCS; 2024-12-02)
PROC: 02100ZC Bypass Coronary Artery, One Artery from Thoracic Artery, Open Approach (ICD-10-PCS; 2024-12-07)
PROC: 06BP4ZZ Excision of Right Saphenous Vein, Percutaneous Endoscopic Approach (ICD-10-PCS; 2024-12-07)
PROC: 5A1221Z Performance of Cardiac Output, Continuous (ICD-10-PCS; 2024-12-07)
PROC: 021209W Bypass Coronary Artery, Three Arteries from Aorta with Autologous Venous Tissue, Open Approach (ICD-10-PCS; 2024-12-07)
PROC: 30233N1 Transfusion of Nonautologous Red Blood Cells into Peripheral Vein, Percutaneous Approach (ICD-10-PCS; 2024-12-07)
PROC: 06BQ4ZZ Excision of Left Saphenous Vein, Percutaneous Endoscopic Approach (ICD-10-PCS; 2024-12-07)
DX: I21.4 Non-ST elevation (NSTEMI) myocardial infarction (principal); D62 Acute posthemorrhagic anemia; N17.9 Acute kidney failure, unspecified; E87.1 Hypo-osmolality and hyponatremia; I25.10 Atherosclerotic heart disease of native coronary artery without angina pectoris; E78.00 Pure hypercholesterolemia, unspecified; R73.03 Prediabetes; D69.59 Other secondary thrombocytopenia; E87.6 Hypokalemia; I34.81 Nonrheumatic mitral (valve) annulus calcification; M81.0 Age-related osteoporosis without current pathological fracture; I10 Essential (primary) hypertension; I95.81 Postprocedural hypotension; E86.1 Hypovolemia; E87.70 Fluid overload, unspecified; Z79.82 Long term (current) use of aspirin; Z79.899 Other long term (current) drug therapy; Z87.891 Personal history of nicotine dependence; Z82.49 Family history of ischemic heart disease and other diseases of the circulatory system
CPT/HCPCS: 71045; 71046; 71250; 73630; 76937; 80048; 80053; 80061; 81003; 81015; 82248; 82330; 82565; 82805; 82810; 82947; 82962; 83036; 83735; 84132; 84302; 84484; 84520; 85014; 85018; 85025; 85027; 85049; 85610; 85730; 86850; 86900; 86901; 86920; 93005; 93306; 93458; 93880; 94002; 96374; 99152; 99153; 99291; C1894; P9016; P9045; P9047; Q9967

== ENCOUNTER → 2025-02-10 14:35 | Outpatient (REF) | payer BC, SELFPAY | LOC: RCS 14:35 | PROVIDERS: ATTENDING PHYSICIAN Nurse Practitioner Gerontology; FAMILY PHYSICIAN Family Medicine | DX: I25.10 Atherosclerotic heart disease of native coronary artery without angina pectoris (principal) | CPT/HCPCS: 93308; 93321; 93325 ==

== ENCOUNTER 2025-05-05 08:04 | Emergency (ER) | payer SELFPAY ==
[2025-05-05 08:07] VITALS: BP 205/96
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
[2025-05-05 10:33] VITALS: BP 168/69
== END 2025-05-05 10:35 | disposition home or self-care (01) ==
LOC: EMR 08:04
PROVIDERS: EMERGENCY PHYSICIAN Student in an Organized Health Care Education/Training Program; FAMILY PHYSICIAN Family Medicine
DX: S16.1XXA Strain of muscle, fascia and tendon at neck level, initial encounter (principal); S20.219A Contusion of unspecified front wall of thorax, initial encounter; V47.5XXA Car driver injured in collision with fixed or stationary object in traffic accident, initial encounter; R03.0 Elevated blood-pressure reading, without diagnosis of hypertension
CPT/HCPCS: 99284; 71046; 72050; 93005